=== PATIENT | male | born 1935 | race Caucasian/White ===

== ENCOUNTER 2018-11-14 06:31 | Inpatient (IN) | payer OTHER, BC ==
[2018-11-14] MEDS: SODIUM CHLORIDE 0.9% 1L BAG IV* (07:09)
[2018-11-14 07:11] LABS: ADD MAN DIFF? NO
[2018-11-14 07:12] LABS: BASOPHIL # 0.1 10^3/ul (0.0-0.1); BASOPHILS % 0.5 % (0.0-2.0); EOSINOPHILS # 0.1 10^3/ul (0.0-0.5); EOSINOPHILS % 0.7 % (0.0-7.0); HEMATOCRIT 30.1 % (42.0-52.0); HEMOGLOBIN 8.9 g/dl (14.0-18.0); LYMPHOCYTES # 1.7 10^3/ul (0.8-2.9); LYMPHOCYTES % 15.3 % (15.0-51.0); MEAN CORPUSCULAR HEMOGLOBIN 26.9 pg (29.0-33.0); MEAN CORPUSCULAR HGB CONC 29.6 g/dl (32.0-37.0); MEAN CORPUSCULAR VOLUME 90.9 fl (82.0-101.0); MEAN PLATELET VOLUME 10.8 fl (7.4-10.4); MONOCYTES % 8.7 % (0.0-11.0); NEUTROPHIL # 8.2 10^3/ul (1.6-7.5); NEUTROPHILS % 74.1 % (39.0-77.0); PLATELET COUNT 359 10^3/UL (140-415); RED BLOOD COUNT 3.31 10^6/ul (4.70-6.10); RED CELL DISTRIBUTION WIDTH 15.3 % (11.5-14.5)
[2018-11-14] MEDS: CEFEPIME 2GM/50 ML (PMX) 50 ML IVPB (07:12)
[2018-11-14 07:30] LABS: ALANINE AMINOTRANSFERASE 65 IU/L (13-69); ALBUMIN 2.7 g/dl (3.3-4.9); ALBUMIN/GLOBULIN RATIO 0.69; ALKALINE PHOSPHATASE 128 IU/L (42-121); ANION GAP 12 (5-13); ASPARTATE AMINO TRANSFERASE 68 IU/L (15-46); BILIRUBIN,INDIRECT 0.5 mg/dl (0-1.1); BILIRUBIN,TOTAL 0.5 mg/dl (0.2-1.3); BLOOD UREA NITROGEN 30 mg/dl (7-20); CALCIUM 8.2 mg/dl (8.4-10.2); CARBON DIOXIDE 27 mmol/L (21-31); CHLORIDE 105 mmol/L (97-110); CREATININE 1.22 mg/dl (0.61-1.24); GLUCOSE 134 mg/dl (70-220); SODIUM 144 mmol/L (135-144); TOTAL PROTEIN 6.6 g/dl (6.1-8.1)
[2018-11-14 07:31] LABS: INR 1.27; PT RATIO 1.3
[2018-11-14 07:32] LABS: PARTIAL THROMBOPLASTIN TIME 36.6 Sec (23.0-35.0)
[2018-11-14 07:42] LABS: TROPONIN-I 0.039 ng/ml (0.000-0.120)
[2018-11-14] MEDS: ACETAMINOPHEN 325 MG SUPP PR (07:43)
[2018-11-14] MEDS: VANCOMYCIN 1 GM (PMX) 250 ML IVPB (07:44)
[2018-11-14] MEDS: KETOROLAC 15 MG INJ IV (07:44)
[2018-11-14 07:47] LABS: Allen Test ACCEPTAB; Arterial Base Excess 2.3 mmol/L (-3.0-3); Arterial Blood Gas Oxygen Sat 99.7 mmHG (95.0-100.0); Arterial COHb 1.1 % (0.0-3.0); Arterial Fraction of Oxyhgb 98.1 % (93.0-99.0); Arterial HCO3 25.2 mmol/L (22.0-26.0); Arterial MetHb 0.5 % (0.0-1.5); Arterial pCO2 32.4 mmhg (35-45); MODE VENT - AC; Site Right Radial
[2018-11-14 09:04] LABS: LACTIC ACID 2.4 mmol/L (0.5-2.0)
[2018-11-14] MEDS ORDERED: ACETAMINOPHEN 325 MG TAB PO (10:30)
[2018-11-14] MEDS ORDERED: ONDANSETRON 4 MG INJ IV (10:30)
[2018-11-14 11:07] LABS: ADD UMIC YES; UR ASCORBIC ACID 40 mg/dL (NEGATIVE); UR BACTERIA FEW /HPF (NONE SEEN); UR BILIRUBIN (Dip) NEGATIVE (NEGATIVE); UR BLOOD (Dip) 2+ mg/dL (NEGATIVE); UR CLARITY CLOUDY (CLEAR); UR COLOR AMBER (YELLOW); UR GLUCOSE (Dip) NEGATIVE (NEGATIVE); UR HYALINE CAST FEW /HPF (NONE SEEN); UR KETONES (Dip) TRACE mg/dL (NEGATIVE); UR LEUKOCYTE ESTERASE (Dip) 2+ Leu/ul (NEGATIVE); UR MUCUS FEW /HPF (NONE SEEN); UR NITRITE (Dip) NEGATIVE (NEGATIVE); UR RBC 90 /HPF (0-5); UR SPECIFIC GRAVITY (Dip) 1.023 (1.003-1.030); UR SQUAMOUS EPITHELIAL CELL FEW /HPF (FEW); UR TOTAL PROTEIN (Dip) 1+ mg/dl (NEGATIVE); UR UROBILINOGEN (Dip) 1+ mg/dL (NEGATIVE); UR WBC 132 /HPF (0-5)
[2018-11-14] MEDS ORDERED: VANCOMYCIN IV PER PHARMACY XX (11:30)
[2018-11-14] MEDS: SOD CHLORIDE 0.9% 1,000 ML IV (11:35)
[2018-11-14 12:10] LABS: LACTIC ACID 1.1 mmol/L (0.5-2.0)
[2018-11-14] MEDS ORDERED: NACL 0.9% 3 ML SYG IV (13:30)
[2018-11-14] MEDS: SOD CHLORIDE 0.45% 1,000 ML IV (15:41)
[2018-11-14] MEDS: PIPER-TAZO 3.375 GM IV (PMX) 100 ML IVPB ×2 (15:41→21:19)
[2018-11-14] MEDS: VANCOMYCIN 1 GM 250 ML IVPB (22:07)
[2018-11-15] MEDS: SOD CHLORIDE 0.45% 1,000 ML IV ×2 (02:26→11:21)
[2018-11-15] MEDS: PIPER-TAZO 3.375 GM IV (PMX) 100 ML IVPB ×3 (06:08→21:17)
[2018-11-15] MEDS: LEVOTHYROXINE 50 MCG TAB GTB (06:10)
[2018-11-15 06:18] LABS: ADD MAN DIFF? NO
[2018-11-15 06:29] LABS: BASOPHILS % 0.4 % (0.0-2.0); EOSINOPHILS # 0.4 10^3/ul (0.0-0.5); EOSINOPHILS % 3.4 % (0.0-7.0); HEMATOCRIT 24.8 % (42.0-52.0); HEMOGLOBIN 7.5 g/dl (14.0-18.0); LYMPHOCYTES # 1.9 10^3/ul (0.8-2.9); MEAN CORPUSCULAR HEMOGLOBIN 27.1 pg (29.0-33.0); MEAN CORPUSCULAR HGB CONC 30.2 g/dl (32.0-37.0); MEAN CORPUSCULAR VOLUME 89.5 fl (82.0-101.0); MEAN PLATELET VOLUME 10.5 fl (7.4-10.4); MONOCYTE # 0.8 10^3/ul (0.3-0.9); MONOCYTES % 7.7 % (0.0-11.0); NEUTROPHIL # 7.4 10^3/ul (1.6-7.5); NEUTROPHILS % 69.7 % (39.0-77.0); PLATELET COUNT 298 10^3/UL (140-415); RED BLOOD COUNT 2.77 10^6/ul (4.70-6.10); RED CELL DISTRIBUTION WIDTH 15.7 % (11.5-14.5)
[2018-11-15 06:29] LABS: WHITE BLOOD COUNT 10.6 10^3/ul (4.8-10.8)
[2018-11-15 06:46] LABS: ALANINE AMINOTRANSFERASE 51 IU/L (13-69); ALBUMIN 2.2 g/dl (3.3-4.9); ALBUMIN/GLOBULIN RATIO 0.68; ALKALINE PHOSPHATASE 100 IU/L (42-121); ANION GAP 12 (5-13); ASPARTATE AMINO TRANSFERASE 46 IU/L (15-46); BILIRUBIN,INDIRECT 0.5 mg/dl (0-1.1); BILIRUBIN,TOTAL 0.5 mg/dl (0.2-1.3); BLOOD UREA NITROGEN 28 mg/dl (7-20); CALCIUM 7.6 mg/dl (8.4-10.2); CARBON DIOXIDE 23 mmol/L (21-31); CHLORIDE 112 mmol/L (97-110); CREATININE 0.99 mg/dl (0.61-1.24); GLUCOSE 87 mg/dl (70-220); POTASSIUM 3.4 mmol/L (3.5-5.1); SODIUM 147 mmol/L (135-144); TOTAL PROTEIN 5.4 g/dl (6.1-8.1)
[2018-11-15 07:20] LABS: HEMOGLOBIN A1C 5.5 % (0-5.9)
[2018-11-15] MEDS: POTASSIUM CHLORIDE 20 MEQ POWDER FOR ORAL SOLN GTB (16:48)
[2018-11-15] MEDS: traMADol 50 MG TAB PEG (21:16)
[2018-11-15] MEDS: VANCOMYCIN 1 GM 250 ML IVPB (22:15)
[2018-11-16] MEDS: PIPER-TAZO 3.375 GM IV (PMX) 100 ML IVPB ×3 (06:10→21:35)
[2018-11-16] MEDS: SOD CHLORIDE 0.45% 1,000 ML IV ×2 (06:10→20:16)
[2018-11-16] MEDS: LEVOTHYROXINE 50 MCG TAB GTB (06:10)
[2018-11-16] MEDS: traMADol 50 MG TAB PEG ×2 (08:12→20:12)
[2018-11-16] MEDS: METOPROLOL 5 MG INJ IV ×3 (09:14→15:50)
[2018-11-16] MEDS: METOPROLOL 25 MG TAB GTB (09:18)
[2018-11-16] MEDS ORDERED: AMIODARONE 900 MG in DEXTROSE 5% 482 ML IV (10:30)
[2018-11-16] MEDS: AMIODARONE 150MG/D5W BOLUS 100 ML IV (11:46)
[2018-11-16] MEDS: DILTIAZEM 25 MG INJ IV ×2 (16:40→17:35)
[2018-11-16] MEDS: DILTIAZEM-D5W 125MG/125ML DRIP 125 ML IV (17:34)
[2018-11-16] MEDS: POTASSIUM CHLORIDE 20 MEQ POWDER FOR ORAL SOLN GTB (18:10)
[2018-11-16] MEDS: ENOXAPARIN 80 MG/0.8 ML SYG SC (18:24)
[2018-11-16] MEDS: SOD CHLORIDE 0.9% 500 ML IV ×2 (19:53→20:15)
[2018-11-16] MEDS: FAMOTIDINE 20 MG TAB GTB (20:12)
[2018-11-16] MEDS: VANCOMYCIN 1 GM 250 ML IVPB (22:09)
[2018-11-17] MEDS: VANCOMYCIN HCL 250 MG/5ML POSYG GTB ×4 (00:09→17:42)
[2018-11-17 05:18] LABS: ADD MAN DIFF? NO
[2018-11-17 05:21] LABS: LACTIC ACID 1.3 mmol/L (0.5-2.0); WHITE BLOOD COUNT 9.6 10^3/ul (4.8-10.8)
[2018-11-17 05:21] LABS: BASOPHIL # 0.1 10^3/ul (0.0-0.1); BASOPHILS % 0.7 % (0.0-2.0); EOSINOPHILS # 0.3 10^3/ul (0.0-0.5); EOSINOPHILS % 3.1 % (0.0-7.0); HEMATOCRIT 26.9 % (42.0-52.0); LYMPHOCYTES # 2.5 10^3/ul (0.8-2.9); LYMPHOCYTES % 25.6 % (15.0-51.0); MEAN CORPUSCULAR HEMOGLOBIN 26.2 pg (29.0-33.0); MEAN CORPUSCULAR HGB CONC 29.7 g/dl (32.0-37.0); MEAN CORPUSCULAR VOLUME 88.2 fl (82.0-101.0); MEAN PLATELET VOLUME 10.3 fl (7.4-10.4); MONOCYTE # 0.8 10^3/ul (0.3-0.9); MONOCYTES % 7.9 % (0.0-11.0); NEUTROPHIL # 5.9 10^3/ul (1.6-7.5); NEUTROPHILS % 61.7 % (39.0-77.0); PLATELET COUNT 391 10^3/UL (140-415); RED BLOOD COUNT 3.05 10^6/ul (4.70-6.10)
[2018-11-17 05:35] LABS: ALANINE AMINOTRANSFERASE 48 IU/L (13-69); ALBUMIN 2.1 g/dl (3.3-4.9); ALBUMIN/GLOBULIN RATIO 0.65; ALKALINE PHOSPHATASE 104 IU/L (42-121); ANION GAP 12 (5-13); ASPARTATE AMINO TRANSFERASE 42 IU/L (15-46); BILIRUBIN,INDIRECT 0.5 mg/dl (0-1.1); BILIRUBIN,TOTAL 0.5 mg/dl (0.2-1.3); BLOOD UREA NITROGEN 17 mg/dl (7-20); CALCIUM 7.6 mg/dl (8.4-10.2); CARBON DIOXIDE 18 mmol/L (21-31); CHLORIDE 119 mmol/L (97-110); CREATININE 1.07 mg/dl (0.61-1.24); GLUCOSE 73 mg/dl (70-220); MAGNESIUM 2.1 mg/dl (1.7-2.5); POTASSIUM 3.5 mmol/L (3.5-5.1); SODIUM 149 mmol/L (135-144); TOTAL PROTEIN 5.3 g/dl (6.1-8.1)
[2018-11-17 05:44] LABS: TROPONIN-I 0.033 ng/ml (0.000-0.120)
[2018-11-17 05:51] LABS: INR 1.46; PROTIME 17.8 Sec (11.9-14.9); PT RATIO 1.4
[2018-11-17] MEDS: PIPER-TAZO 3.375 GM IV (PMX) 100 ML IVPB ×2 (06:20→14:20)
[2018-11-17] MEDS: LEVOTHYROXINE 50 MCG TAB GTB (06:20)
[2018-11-17] MEDS: HEPARIN 1000 UNITS/ML 10 ML INJ IV ×3 (07:30→22:12)
[2018-11-17] MEDS ORDERED: HEPARIN 1000 UNITS/ML 10 ML INJ IV (07:30)
[2018-11-17] MEDS: SOD CHLORIDE 0.45% 1,000 ML IV (07:46)
[2018-11-17 08:19] LABS: ADD MAN DIFF? NO
[2018-11-17 08:27] LABS: WHITE BLOOD COUNT 9.7 10^3/ul (4.8-10.8)
[2018-11-17 08:27] LABS: BASOPHIL # 0.1 10^3/ul (0.0-0.1); BASOPHILS % 0.8 % (0.0-2.0); EOSINOPHILS # 0.3 10^3/ul (0.0-0.5); EOSINOPHILS % 3.3 % (0.0-7.0); HEMATOCRIT 26.8 % (42.0-52.0); HEMOGLOBIN 8.2 g/dl (14.0-18.0); LYMPHOCYTES # 2.8 10^3/ul (0.8-2.9); LYMPHOCYTES % 28.7 % (15.0-51.0); MEAN CORPUSCULAR HEMOGLOBIN 26.6 pg (29.0-33.0); MEAN CORPUSCULAR HGB CONC 30.6 g/dl (32.0-37.0); MEAN PLATELET VOLUME 10.2 fl (7.4-10.4); MONOCYTE # 0.9 10^3/ul (0.3-0.9); MONOCYTES % 9.4 % (0.0-11.0); NEUTROPHIL # 5.5 10^3/ul (1.6-7.5); NEUTROPHILS % 56.6 % (39.0-77.0); PLATELET COUNT 362 10^3/UL (140-415); RED BLOOD COUNT 3.08 10^6/ul (4.70-6.10); RED CELL DISTRIBUTION WIDTH 16.1 % (11.5-14.5)
[2018-11-17 08:42] LABS: PROTIME 17.3 Sec (11.9-14.9); PT RATIO 1.4
[2018-11-17 08:43] LABS: PARTIAL THROMBOPLASTIN TIME 49.7 Sec (23.0-35.0)
[2018-11-17] MEDS: HEPARIN 25000 UNITS/250 ML 250 ML IV ×2 (09:25→17:52)
[2018-11-17] MEDS: POTASSIUM CHLORIDE 20 MEQ POWDER FOR ORAL SOLN GTB (09:55)
[2018-11-17] MEDS: traMADol 50 MG TAB PEG ×2 (09:56→20:25)
[2018-11-17] MEDS: BALSAM PERU/CASTOR OIL 60 GM TUBE TOP (12:55)
[2018-11-17] MEDS: HYDROmorphONE 0.5 MG/0.5 ML SYG IV (12:55)
[2018-11-17] MEDS ORDERED: GENTAMICIN IV PER PHARMACY XX (16:00)
[2018-11-17 16:41] LABS: PARTIAL THROMBOPLASTIN TIME 148.2 Sec (23.0-35.0)
[2018-11-17] MEDS: GENTAMICIN 100 MG/50 ML NS IVPB (17:44)
[2018-11-17] MEDS: DILTIAZEM-D5W 125MG/125ML DRIP 125 ML IV (18:23)
[2018-11-17] MEDS: metroNIDAZOLE 500 MG/NS (PMX) 100 ML IVPB (19:13)
[2018-11-17] MEDS: METOPROLOL 5 MG INJ IV (19:38)
[2018-11-17] MEDS: POTASSIUM CHLORIDE 100 ML IVPB ×2 (20:24→22:12)
[2018-11-17] MEDS: FAMOTIDINE 20 MG TAB GTB (20:25)
[2018-11-17 21:32] LABS: PARTIAL THROMBOPLASTIN TIME 45.5 Sec (23.0-35.0)
[2018-11-17] MEDS: AMIODARONE 150MG/D5W BOLUS 100 ML IV (21:32)
[2018-11-17] MEDS: AMIODARONE 900 MG in DEXTROSE 5% 482 ML IV (21:32)
[2018-11-17 21:57] LABS: VANCOMYCIN,TROUGH 14.2 ug/ml (10.0-20.0)
[2018-11-18] MEDS: VANCOMYCIN HCL 250 MG/5ML POSYG GTB ×4 (00:16→17:19)
[2018-11-18] MEDS: metroNIDAZOLE 500 MG/NS (PMX) 100 ML IVPB ×2 (00:17→05:52)
[2018-11-18 05:25] LABS: ADD MAN DIFF? NO
[2018-11-18 05:29] LABS: WHITE BLOOD COUNT 9.4 10^3/ul (4.8-10.8)
[2018-11-18 05:29] LABS: BASOPHIL # 0.1 10^3/ul (0.0-0.1); BASOPHILS % 0.5 % (0.0-2.0); EOSINOPHILS # 0.3 10^3/ul (0.0-0.5); EOSINOPHILS % 2.9 % (0.0-7.0); HEMATOCRIT 24.3 % (42.0-52.0); HEMOGLOBIN 7.4 g/dl (14.0-18.0); LYMPHOCYTES # 2.9 10^3/ul (0.8-2.9); LYMPHOCYTES % 30.5 % (15.0-51.0); MEAN CORPUSCULAR HEMOGLOBIN 25.9 pg (29.0-33.0); MEAN CORPUSCULAR HGB CONC 30.5 g/dl (32.0-37.0); MEAN PLATELET VOLUME 10.2 fl (7.4-10.4); MONOCYTES % 10.7 % (0.0-11.0); NEUTROPHILS % 52.9 % (39.0-77.0); PLATELET COUNT 371 10^3/UL (140-415); RED BLOOD COUNT 2.86 10^6/ul (4.70-6.10); RED CELL DISTRIBUTION WIDTH 16.3 % (11.5-14.5)
[2018-11-18 05:53] LABS: INR 1.42; PROTIME 17.5 Sec (11.9-14.9); PT RATIO 1.4
[2018-11-18 05:54] LABS: ANION GAP 9 (5-13); BLOOD UREA NITROGEN 16 mg/dl (7-20); CALCIUM 7.4 mg/dl (8.4-10.2); CARBON DIOXIDE 18 mmol/L (21-31); CHLORIDE 121 mmol/L (97-110); CREATININE 1.08 mg/dl (0.61-1.24); GLUCOSE 112 mg/dl (70-220); POTASSIUM 4.2 mmol/L (3.5-5.1); SODIUM 148 mmol/L (135-144)
[2018-11-18] MEDS: LEVOTHYROXINE 50 MCG TAB GTB (06:00)
[2018-11-18] MEDS: HEPARIN 25000 UNITS/250 ML 250 ML IV (06:53)
[2018-11-18 06:57] LABS: PARTIAL THROMBOPLASTIN TIME > 180.0 Sec (23.0-35.0)
[2018-11-18] MEDS: POTASSIUM CHLORIDE 20 MEQ POWDER FOR ORAL SOLN GTB (08:09)
[2018-11-18] MEDS: traMADol 50 MG TAB PEG ×2 (08:09→22:24)
[2018-11-18] MEDS: BALSAM PERU/CASTOR OIL 60 GM TUBE TOP (08:09)
[2018-11-18 08:51] LABS: INR 1.36; PROTIME 16.9 Sec (11.9-14.9); PT RATIO 1.3
[2018-11-18 09:06] LABS: PARTIAL THROMBOPLASTIN TIME 78.4 Sec (23.0-35.0)
[2018-11-18] MEDS: METOPROLOL (XL) 25 MG TAB PO (10:08)
[2018-11-18 10:55] LABS: INR 1.34; PROTIME 16.7 Sec (11.9-14.9); PT RATIO 1.3
[2018-11-18 10:56] LABS: PARTIAL THROMBOPLASTIN TIME 47.3 Sec (23.0-35.0)
[2018-11-18] MEDS: GENTAMICIN 100 MG/50 ML NS IVPB (18:26)
[2018-11-18] MEDS: FAMOTIDINE 20 MG TAB GTB (22:24)
[2018-11-19] MEDS: VANCOMYCIN HCL 250 MG/5ML POSYG GTB ×4 (00:38→17:53)
[2018-11-19 06:19] LABS: ADD MAN DIFF? NO
[2018-11-19 06:24] LABS: BASOPHIL # 0.1 10^3/ul (0.0-0.1); BASOPHILS % 0.5 % (0.0-2.0); EOSINOPHILS # 0.4 10^3/ul (0.0-0.5); EOSINOPHILS % 3.8 % (0.0-7.0); HEMATOCRIT 24.3 % (42.0-52.0); HEMOGLOBIN 7.4 g/dl (14.0-18.0); LYMPHOCYTES # 2.3 10^3/ul (0.8-2.9); LYMPHOCYTES % 23.9 % (15.0-51.0); MEAN CORPUSCULAR HEMOGLOBIN 27.1 pg (29.0-33.0); MEAN CORPUSCULAR HGB CONC 30.5 g/dl (32.0-37.0); MEAN PLATELET VOLUME 10.1 fl (7.4-10.4); MONOCYTE # 0.7 10^3/ul (0.3-0.9); MONOCYTES % 7.5 % (0.0-11.0); NEUTROPHILS % 62.2 % (39.0-77.0); PLATELET COUNT 346 10^3/UL (140-415); RED BLOOD COUNT 2.73 10^6/ul (4.70-6.10); RED CELL DISTRIBUTION WIDTH 16.9 % (11.5-14.5)
[2018-11-19 06:24] LABS: WHITE BLOOD COUNT 9.6 10^3/ul (4.8-10.8)
[2018-11-19] MEDS: LEVOTHYROXINE 50 MCG TAB GTB (06:33)
[2018-11-19 07:41] LABS: ANION GAP 6 (5-13)
[2018-11-19 07:55] LABS: BLOOD UREA NITROGEN 13 mg/dl (7-20); CARBON DIOXIDE 19 mmol/L (21-31); CHLORIDE 123 mmol/L (97-110); CREATININE 1.07 mg/dl (0.61-1.24); GLUCOSE 87 mg/dl (70-220); POTASSIUM 3.9 mmol/L (3.5-5.1); SODIUM 148 mmol/L (135-144)
[2018-11-19 07:56] LABS: CALCIUM 7.6 mg/dl (8.4-10.2)
[2018-11-19] MEDS: BALSAM PERU/CASTOR OIL 60 GM TUBE TOP (08:32)
[2018-11-19] MEDS: METOPROLOL (XL) 25 MG TAB PO (08:32)
[2018-11-19] MEDS: POTASSIUM CHLORIDE 20 MEQ POWDER FOR ORAL SOLN GTB (08:32)
[2018-11-19] MEDS: traMADol 50 MG TAB PEG ×2 (08:33→22:23)
[2018-11-19] MEDS: AMIODARONE 200 MG TAB PO ×2 (11:25→22:24)
[2018-11-19] MEDS: GENTAMICIN 100 MG/50 ML NS IVPB (17:53)
[2018-11-19 18:42] LABS: GENTAMICIN,TROUGH 1.6 ug/ml (1.0-2.0)
[2018-11-19] MEDS: FAMOTIDINE 20 MG TAB GTB (22:22)
[2018-11-20] MEDS: VANCOMYCIN HCL 250 MG/5ML POSYG GTB ×4 (02:43→18:02)
[2018-11-20] MEDS: LEVOTHYROXINE 50 MCG TAB GTB (06:25)
[2018-11-20 08:21] LABS: ADD MAN DIFF? NO
[2018-11-20 08:32] LABS: BASOPHIL # 0.1 10^3/ul (0.0-0.1); BASOPHILS % 0.4 % (0.0-2.0); EOSINOPHILS # 0.3 10^3/ul (0.0-0.5); EOSINOPHILS % 1.5 % (0.0-7.0); HEMATOCRIT 25.2 % (42.0-52.0); HEMOGLOBIN 7.8 g/dl (14.0-18.0); LYMPHOCYTES # 3.1 10^3/ul (0.8-2.9); LYMPHOCYTES % 18.8 % (15.0-51.0); MEAN CORPUSCULAR HEMOGLOBIN 26.5 pg (29.0-33.0); MEAN CORPUSCULAR VOLUME 85.7 fl (82.0-101.0); MEAN PLATELET VOLUME 9.7 fl (7.4-10.4); MONOCYTE # 1.2 10^3/ul (0.3-0.9); MONOCYTES % 7.1 % (0.0-11.0); NEUTROPHIL # 11.7 10^3/ul (1.6-7.5); NEUTROPHILS % 71.3 % (39.0-77.0); PLATELET COUNT 334 10^3/UL (140-415); RED BLOOD COUNT 2.94 10^6/ul (4.70-6.10); RED CELL DISTRIBUTION WIDTH 17.3 % (11.5-14.5)
[2018-11-20 08:32] LABS: WHITE BLOOD COUNT 16.4 10^3/ul (4.8-10.8)
[2018-11-20 08:51] LABS: ANION GAP 8 (5-13); BLOOD UREA NITROGEN 10 mg/dl (7-20); CALCIUM 7.9 mg/dl (8.4-10.2); CARBON DIOXIDE 19 mmol/L (21-31); CHLORIDE 122 mmol/L (97-110); CREATININE 1.04 mg/dl (0.61-1.24); GLUCOSE 72 mg/dl (70-220); POTASSIUM 3.7 mmol/L (3.5-5.1); SODIUM 149 mmol/L (135-144)
[2018-11-20] MEDS: POTASSIUM CHLORIDE 20 MEQ POWDER FOR ORAL SOLN GTB (08:58)
[2018-11-20] MEDS: traMADol 50 MG TAB PEG ×2 (08:59→22:05)
[2018-11-20] MEDS: AMIODARONE 200 MG TAB PO ×2 (08:59→22:04)
[2018-11-20] MEDS: METOPROLOL (XL) 25 MG TAB PO (08:59)
[2018-11-20] MEDS: BALSAM PERU/CASTOR OIL 60 GM TUBE TOP (09:00)
[2018-11-20] MEDS: DEXTROSE 5% 1,000 ML IV (10:06)
[2018-11-20] MEDS: GENTAMICIN 100 MG/50 ML NS IVPB (18:03)
[2018-11-20] MEDS: FAMOTIDINE 20 MG TAB GTB (22:05)
[2018-11-21] MEDS: VANCOMYCIN HCL 250 MG/5ML POSYG GTB ×4 (01:22→17:33)
[2018-11-21] MEDS: LEVOTHYROXINE 50 MCG TAB GTB ×2 (06:00→08:42)
[2018-11-21 06:15] LABS: ADD MAN DIFF? NO
[2018-11-21 06:18] LABS: WHITE BLOOD COUNT 11.9 10^3/ul (4.8-10.8)
[2018-11-21 06:18] LABS: BASOPHILS % 0.3 % (0.0-2.0); EOSINOPHILS # 0.4 10^3/ul (0.0-0.5); EOSINOPHILS % 3.5 % (0.0-7.0); LYMPHOCYTES # 3.2 10^3/ul (0.8-2.9); LYMPHOCYTES % 27.1 % (15.0-51.0); MEAN CORPUSCULAR HEMOGLOBIN 26.5 pg (29.0-33.0); MEAN CORPUSCULAR HGB CONC 30.8 g/dl (32.0-37.0); MEAN CORPUSCULAR VOLUME 86.1 fl (82.0-101.0); MONOCYTES % 8.3 % (0.0-11.0); NEUTROPHIL # 7.1 10^3/ul (1.6-7.5); NEUTROPHILS % 59.8 % (39.0-77.0); PLATELET COUNT 316 10^3/UL (140-415); RED BLOOD COUNT 3.02 10^6/ul (4.70-6.10); RED CELL DISTRIBUTION WIDTH 17.6 % (11.5-14.5)
[2018-11-21 06:54] LABS: ANION GAP 5 (5-13); BLOOD UREA NITROGEN 9 mg/dl (7-20); CARBON DIOXIDE 22 mmol/L (21-31); CHLORIDE 119 mmol/L (97-110); CREATININE 0.98 mg/dl (0.61-1.24); GLUCOSE 105 mg/dl (70-220); SODIUM 146 mmol/L (135-144)
[2018-11-21] MEDS: POTASSIUM CHLORIDE 20 MEQ POWDER FOR ORAL SOLN GTB (08:40)
[2018-11-21] MEDS: AMIODARONE 200 MG TAB PO ×2 (08:41→20:18)
[2018-11-21] MEDS: METOPROLOL (XL) 25 MG TAB PO (08:42)
[2018-11-21] MEDS: traMADol 50 MG TAB PEG ×2 (08:42→20:15)
[2018-11-21] MEDS: BALSAM PERU/CASTOR OIL 60 GM TUBE TOP (08:43)
[2018-11-21] MEDS: GENTAMICIN 100 MG/50 ML NS IVPB (17:33)
[2018-11-21] MEDS: FAMOTIDINE 20 MG TAB GTB (20:15)
[2018-11-22] MEDS: VANCOMYCIN HCL 250 MG/5ML POSYG GTB ×4 (00:02→17:30)
[2018-11-22 06:22] LABS: ADD MAN DIFF? NO
[2018-11-22 06:37] LABS: WHITE BLOOD COUNT 10.8 10^3/ul (4.8-10.8)
[2018-11-22 06:37] LABS: BASOPHILS % 0.4 % (0.0-2.0); EOSINOPHILS # 0.4 10^3/ul (0.0-0.5); EOSINOPHILS % 3.3 % (0.0-7.0); HEMATOCRIT 25.4 % (42.0-52.0); HEMOGLOBIN 7.8 g/dl (14.0-18.0); LYMPHOCYTES % 27.6 % (15.0-51.0); MEAN CORPUSCULAR HEMOGLOBIN 26.6 pg (29.0-33.0); MEAN CORPUSCULAR HGB CONC 30.7 g/dl (32.0-37.0); MEAN CORPUSCULAR VOLUME 86.7 fl (82.0-101.0); MEAN PLATELET VOLUME 10.2 fl (7.4-10.4); MONOCYTE # 0.9 10^3/ul (0.3-0.9); MONOCYTES % 8.4 % (0.0-11.0); NEUTROPHIL # 6.3 10^3/ul (1.6-7.5); NEUTROPHILS % 58.8 % (39.0-77.0); PLATELET COUNT 284 10^3/UL (140-415); RED BLOOD COUNT 2.93 10^6/ul (4.70-6.10); RED CELL DISTRIBUTION WIDTH 17.9 % (11.5-14.5)
[2018-11-22 06:50] LABS: ANION GAP 7 (5-13); BLOOD UREA NITROGEN 9 mg/dl (7-20); CALCIUM 8.2 mg/dl (8.4-10.2); CARBON DIOXIDE 22 mmol/L (21-31); CHLORIDE 117 mmol/L (97-110); CREATININE 1.04 mg/dl (0.61-1.24); GLUCOSE 94 mg/dl (70-220); SODIUM 146 mmol/L (135-144)
[2018-11-22] MEDS: AMIODARONE 200 MG TAB PO ×2 (08:21→20:21)
[2018-11-22] MEDS: POTASSIUM CHLORIDE 20 MEQ POWDER FOR ORAL SOLN GTB (08:21)
[2018-11-22] MEDS: LEVOTHYROXINE 50 MCG TAB GTB (08:21)
[2018-11-22] MEDS: traMADol 50 MG TAB PEG ×2 (08:22→20:16)
[2018-11-22] MEDS: METOPROLOL (XL) 25 MG TAB PO (08:22)
[2018-11-22] MEDS: BALSAM PERU/CASTOR OIL 60 GM TUBE TOP (08:23)
[2018-11-22] MEDS: GENTAMICIN 100 MG/50 ML NS IVPB (17:31)
[2018-11-22] MEDS: FAMOTIDINE 20 MG TAB GTB (20:16)
[2018-11-23] MEDS: VANCOMYCIN HCL 250 MG/5ML POSYG GTB ×4 (00:20→17:33)
[2018-11-23 05:17] LABS: ADD MAN DIFF? NO
[2018-11-23 05:24] LABS: BASOPHIL # 0.1 10^3/ul (0.0-0.1); BASOPHILS % 0.4 % (0.0-2.0); EOSINOPHILS # 0.2 10^3/ul (0.0-0.5); EOSINOPHILS % 1.7 % (0.0-7.0); HEMATOCRIT 27.1 % (42.0-52.0); HEMOGLOBIN 8.4 g/dl (14.0-18.0); LYMPHOCYTES # 3.8 10^3/ul (0.8-2.9); LYMPHOCYTES % 27.2 % (15.0-51.0); MEAN CORPUSCULAR HEMOGLOBIN 26.5 pg (29.0-33.0); MEAN CORPUSCULAR VOLUME 85.5 fl (82.0-101.0); MONOCYTE # 1.3 10^3/ul (0.3-0.9); MONOCYTES % 9.5 % (0.0-11.0); NEUTROPHIL # 8.4 10^3/ul (1.6-7.5); NEUTROPHILS % 60.4 % (39.0-77.0); PLATELET COUNT 272 10^3/UL (140-415); RED BLOOD COUNT 3.17 10^6/ul (4.70-6.10); RED CELL DISTRIBUTION WIDTH 18.3 % (11.5-14.5)
[2018-11-23 05:24] LABS: WHITE BLOOD COUNT 13.9 10^3/ul (4.8-10.8)
[2018-11-23 06:24] LABS: ANION GAP 9 (5-13); BLOOD UREA NITROGEN 10 mg/dl (7-20); CALCIUM 8.1 mg/dl (8.4-10.2); CARBON DIOXIDE 21 mmol/L (21-31); CHLORIDE 115 mmol/L (97-110); CREATININE 1.11 mg/dl (0.61-1.24); GLUCOSE 88 mg/dl (70-220); POTASSIUM 4.2 mmol/L (3.5-5.1); SODIUM 145 mmol/L (135-144)
[2018-11-23] MEDS: POTASSIUM CHLORIDE 20 MEQ POWDER FOR ORAL SOLN GTB (08:16)
[2018-11-23] MEDS: AMIODARONE 200 MG TAB PO ×2 (08:17→21:20)
[2018-11-23] MEDS: METOPROLOL (XL) 25 MG TAB PO (08:17)
[2018-11-23] MEDS: BALSAM PERU/CASTOR OIL 60 GM TUBE TOP (08:18)
[2018-11-23] MEDS: traMADol 50 MG TAB PEG ×2 (08:18→21:20)
[2018-11-23] MEDS: GENTAMICIN 100 MG/50 ML NS IVPB (18:14)
[2018-11-23] MEDS: FAMOTIDINE 20 MG TAB GTB (21:20)
[2018-11-23] MEDS: ASCORBIC ACID 500 MG TAB GTB (21:21)
[2018-11-24] MEDS: VANCOMYCIN HCL 250 MG/5ML POSYG GTB ×5 (01:01→23:54)
[2018-11-24 05:23] LABS: ADD MAN DIFF? NO
[2018-11-24 05:27] LABS: BASOPHIL # 0.1 10^3/ul (0.0-0.1); BASOPHILS % 0.5 % (0.0-2.0); EOSINOPHILS # 0.3 10^3/ul (0.0-0.5); EOSINOPHILS % 2.1 % (0.0-7.0); HEMATOCRIT 25.6 % (42.0-52.0); LYMPHOCYTES # 4.2 10^3/ul (0.8-2.9); LYMPHOCYTES % 34.2 % (15.0-51.0); MEAN CORPUSCULAR HEMOGLOBIN 26.9 pg (29.0-33.0); MEAN CORPUSCULAR HGB CONC 31.3 g/dl (32.0-37.0); MEAN CORPUSCULAR VOLUME 86.2 fl (82.0-101.0); MEAN PLATELET VOLUME 10.3 fl (7.4-10.4); MONOCYTE # 1.2 10^3/ul (0.3-0.9); MONOCYTES % 9.9 % (0.0-11.0); NEUTROPHIL # 6.4 10^3/ul (1.6-7.5); NEUTROPHILS % 52.7 % (39.0-77.0); PLATELET COUNT 235 10^3/UL (140-415); RED BLOOD COUNT 2.97 10^6/ul (4.70-6.10); RED CELL DISTRIBUTION WIDTH 18.4 % (11.5-14.5)
[2018-11-24 05:27] LABS: WHITE BLOOD COUNT 12.2 10^3/ul (4.8-10.8)
[2018-11-24 05:48] LABS: ANION GAP 8 (5-13); BLOOD UREA NITROGEN 11 mg/dl (7-20); CALCIUM 8.1 mg/dl (8.4-10.2); CARBON DIOXIDE 22 mmol/L (21-31); CHLORIDE 115 mmol/L (97-110); CREATININE 1.18 mg/dl (0.61-1.24); GLUCOSE 102 mg/dl (70-220); POTASSIUM 3.9 mmol/L (3.5-5.1); SODIUM 145 mmol/L (135-144)
[2018-11-24] MEDS: LEVOTHYROXINE 50 MCG TAB GTB (06:30)
[2018-11-24] MEDS: POTASSIUM CHLORIDE 20 MEQ POWDER FOR ORAL SOLN GTB (09:39)
[2018-11-24] MEDS: ZINC SULFATE 220 MG CAP GTB (09:39)
[2018-11-24] MEDS: MULTIVITAMINS 30 ML CUP GTB (09:39)
[2018-11-24] MEDS: ASCORBIC ACID 500 MG TAB GTB ×2 (09:39→21:37)
[2018-11-24] MEDS: BALSAM PERU/CASTOR OIL 60 GM TUBE TOP (09:40)
[2018-11-24] MEDS: AMIODARONE 200 MG TAB PO ×2 (09:40→21:37)
[2018-11-24] MEDS: METOPROLOL (XL) 25 MG TAB PO (09:41)
[2018-11-24] MEDS: traMADol 50 MG TAB PEG ×2 (09:50→21:37)
[2018-11-24] MEDS: FAMOTIDINE 20 MG TAB GTB (21:37)
[2018-11-25] MEDS: VANCOMYCIN HCL 250 MG/5ML POSYG GTB ×3 (05:10→18:07)
[2018-11-25] MEDS: LEVOTHYROXINE 50 MCG TAB GTB (05:10)
[2018-11-25] MEDS: ZINC SULFATE 220 MG CAP GTB (08:59)
[2018-11-25] MEDS: METOPROLOL (XL) 25 MG TAB PO (08:59)
[2018-11-25] MEDS: ASCORBIC ACID 500 MG TAB GTB ×2 (08:59→22:06)
[2018-11-25] MEDS: AMIODARONE 200 MG TAB PO ×2 (08:59→22:07)
[2018-11-25] MEDS: traMADol 50 MG TAB PEG ×2 (09:00→22:06)
[2018-11-25] MEDS: BALSAM PERU/CASTOR OIL 60 GM TUBE TOP (09:00)
[2018-11-25] MEDS: MULTIVITAMINS 30 ML CUP GTB (09:00)
[2018-11-25] MEDS: POTASSIUM CHLORIDE 20 MEQ POWDER FOR ORAL SOLN GTB (09:00)
[2018-11-25] MEDS: FAMOTIDINE 20 MG TAB GTB (22:06)
[2018-11-26] MEDS: VANCOMYCIN HCL 250 MG/5ML POSYG GTB ×4 (02:15→19:23)
[2018-11-26] MEDS: LEVOTHYROXINE 50 MCG TAB GTB (06:08)
[2018-11-26] MEDS: POTASSIUM CHLORIDE 20 MEQ POWDER FOR ORAL SOLN GTB (09:05)
[2018-11-26] MEDS: MULTIVITAMINS 30 ML CUP GTB (09:05)
[2018-11-26] MEDS: AMIODARONE 200 MG TAB PO ×2 (09:06→21:21)
[2018-11-26] MEDS: METOPROLOL (XL) 25 MG TAB PO (09:06)
[2018-11-26] MEDS: ZINC SULFATE 220 MG CAP GTB (09:06)
[2018-11-26] MEDS: ASCORBIC ACID 500 MG TAB GTB ×2 (09:07→21:19)
[2018-11-26] MEDS: BALSAM PERU/CASTOR OIL 60 GM TUBE TOP (09:07)
[2018-11-26] MEDS: traMADol 50 MG TAB PEG ×2 (09:07→21:19)
[2018-11-26] MEDS: metroNIDAZOLE 500 MG/NS (PMX) 100 ML IVPB ×2 (19:24→21:18)
[2018-11-26] MEDS: FAMOTIDINE 20 MG TAB GTB (21:21)
[2018-11-27] MEDS: VANCOMYCIN HCL 250 MG/5ML POSYG GTB ×3 (00:12→11:22)
[2018-11-27] MEDS: LEVOTHYROXINE 50 MCG TAB GTB (06:19)
[2018-11-27] MEDS: metroNIDAZOLE 500 MG/NS (PMX) 100 ML IVPB (06:19)
[2018-11-27] MEDS: ASCORBIC ACID 500 MG TAB GTB (08:13)
[2018-11-27] MEDS: BALSAM PERU/CASTOR OIL 60 GM TUBE TOP (08:13)
[2018-11-27] MEDS: MULTIVITAMINS 30 ML CUP GTB (08:13)
[2018-11-27] MEDS: POTASSIUM CHLORIDE 20 MEQ POWDER FOR ORAL SOLN GTB (08:13)
[2018-11-27] MEDS: ZINC SULFATE 220 MG CAP GTB (08:13)
[2018-11-27] MEDS: METOPROLOL (XL) 25 MG TAB PO (08:14)
[2018-11-27] MEDS: AMIODARONE 200 MG TAB PO (08:14)
[2018-11-27] MEDS: traMADol 50 MG TAB PEG (08:44)
== END 2018-11-27 16:22 | DRG 870 ==
LOC: ICU 11-16 18:23 → E/R 06:31 → 6WM 11-18 17:52 → TEL 12:38
PROVIDERS: Hospitalist
PROC: 5A1955Z Respiratory Ventilation, Greater than 96 Consecutive Hours (ICD-10-PCS; principal; 2018-11-14)
DX: A41.9 Sepsis, unspecified organism (principal); J96.10 Chronic respiratory failure, unspecified whether with hypoxia or hypercapnia; N39.0 Urinary tract infection, site not specified; I82.411 Acute embolism and thrombosis of right femoral vein; A04.72 Enterocolitis due to Clostridium difficile, not specified as recurrent; G93.49 Other encephalopathy; C71.9 Malignant neoplasm of brain, unspecified; E46 Unspecified protein-calorie malnutrition; I42.9 Cardiomyopathy, unspecified; E87.0 Hyperosmolality and hypernatremia; Z99.11 Dependence on respirator [ventilator] status; I48.0 Paroxysmal atrial fibrillation; R13.10 Dysphagia, unspecified; E03.9 Hypothyroidism, unspecified; B96.5 Pseudomonas (aeruginosa) (mallei) (pseudomallei) as the cause of diseases classified elsewhere; D64.9 Anemia, unspecified; Z93.0 Tracheostomy status; Z93.1 Gastrostomy status; Z68.22 Body mass index [BMI] 22.0-22.9, adult
CPT/HCPCS: 36415; 36600; 70450; 71045; 80048; 80053; 80170; 80202; 81001; 82803; 83036; 83605; 83735; 84100; 84443; 84484; 85025; 85610; 85730; 87040-91; 87075; 87081; 87086; 93005; 93306; 93970; 94002; 94003; 96365; 96366; 96367; 96375; 99285-25

== ENCOUNTER 2018-12-20 13:45 | Inpatient (IN) | payer OTHER, MEDICAID ==
[2018-12-20 14:32] LABS: ADD MAN DIFF? NO
[2018-12-20] MEDS: CEFEPIME 2GM/50 ML (PMX) 50 ML IVPB (14:32)
[2018-12-20] MEDS: SODIUM CHLORIDE 0.9% 1L BAG IV* (14:32)
[2018-12-20 14:34] LABS: WHITE BLOOD COUNT 13.8 10^3/ul (4.8-10.8)
[2018-12-20 14:34] LABS: ABNORMAL IP MESSAGE 1; BASOPHILS % 0.2 % (0.0-2.0); EOSINOPHILS # 0.1 10^3/ul (0.0-0.5); EOSINOPHILS % 0.5 % (0.0-7.0); HEMATOCRIT 25.8 % (42.0-52.0); HEMOGLOBIN 7.6 g/dl (14.0-18.0); LYMPHOCYTES # 2.9 10^3/ul (0.8-2.9); LYMPHOCYTES % 21.2 % (15.0-51.0); MEAN CORPUSCULAR HEMOGLOBIN 26.9 pg (29.0-33.0); MEAN CORPUSCULAR HGB CONC 29.5 g/dl (32.0-37.0); MEAN CORPUSCULAR VOLUME 91.2 fl (82.0-101.0); MEAN PLATELET VOLUME 10.7 fl (7.4-10.4); MONOCYTE # 0.6 10^3/ul (0.3-0.9); MONOCYTES % 4.6 % (0.0-11.0); NEUTROPHIL # 9.9 10^3/ul (1.6-7.5); NEUTROPHILS % 72.1 % (39.0-77.0); NUCLEATED RED BLOOD CELLS% 0.2 /100WBC (0.0-0.0); PLATELET COUNT 253 10^3/UL (140-415); POSITIVE DIFF @See below; RED BLOOD COUNT 2.83 10^6/ul (4.70-6.10); RED CELL DISTRIBUTION WIDTH 24.5 % (11.5-14.5)
[2018-12-20 14:51] LABS: ALANINE AMINOTRANSFERASE 18 IU/L (13-69); ALBUMIN 1.9 g/dl (3.3-4.9); ALBUMIN/GLOBULIN RATIO 0.47; ALKALINE PHOSPHATASE 167 IU/L (42-121); ANION GAP 8 (5-13); ASPARTATE AMINO TRANSFERASE 32 IU/L (15-46); BILIRUBIN,INDIRECT 0.3 mg/dl (0-1.1); BILIRUBIN,TOTAL 0.3 mg/dl (0.2-1.3); BLOOD UREA NITROGEN 13 mg/dl (7-20); CALCIUM 8.7 mg/dl (8.4-10.2); CARBON DIOXIDE 14 mmol/L (21-31); CHLORIDE 131 mmol/L (97-110); CREATININE 3.11 mg/dl (0.61-1.24); GLUCOSE 85 mg/dl (70-220); POTASSIUM 3.5 mmol/L (3.5-5.1); SODIUM 153 mmol/L (135-144); TOTAL PROTEIN 5.9 g/dl (6.1-8.1)
[2018-12-20 14:54] LABS: INR 1.52; PROTIME 18.4 Sec (11.9-14.9); PT RATIO 1.4
[2018-12-20 14:55] LABS: PARTIAL THROMBOPLASTIN TIME 56.6 Sec (23.0-35.0)
[2018-12-20 15:02] LABS: TROPONIN-I < 0.012 ng/ml (0.000-0.120)
[2018-12-20] MEDS: VANCOMYCIN 1 GM (PMX) 250 ML IVPB (15:41)
[2018-12-20 16:53] LABS: IMMEDIATE SPIN CROSSMATCH 1 2
[2018-12-20 17:16] LABS: LACTIC ACID 1.8 mmol/L (0.5-2.0)
[2018-12-20] MEDS: NORepinephrine 8MG/250 ML (PMX 250 ML IV ×2 (19:03→19:10)
[2018-12-20] MEDS ORDERED: PIPER-TAZO 2.25 GM (PMX) 50 ML IVPB (20:00)
[2018-12-20] MEDS ORDERED: ONDANSETRON 4 MG INJ IV (20:00)
[2018-12-20] MEDS ORDERED: VANCOMYCIN IV PER PHARMACY XX ×2 (20:00→22:30)
[2018-12-20] MEDS ORDERED: IPRATROPIUM (HFA) 12.9 GM INHALER INH (20:00)
[2018-12-20] MEDS ORDERED: ACETAMINOPHEN 650MG/20.3ML CUP GTB (20:00)
[2018-12-20] MEDS ORDERED: ALBUTEROL HFA 8 GM INHALER INH (20:00)
[2018-12-20 21:01] LABS: ADD MAN DIFF? NO
[2018-12-20 21:12] LABS: ABNORMAL IP MESSAGE 1; BASOPHIL # 0.1 10^3/ul (0.0-0.1); BASOPHILS % 0.4 % (0.0-2.0); EOSINOPHILS # 0.1 10^3/ul (0.0-0.5); EOSINOPHILS % 0.3 % (0.0-7.0); HEMATOCRIT 30.6 % (42.0-52.0); LYMPHOCYTES % 15.3 % (15.0-51.0); MEAN CORPUSCULAR HEMOGLOBIN 27.2 pg (29.0-33.0); MEAN CORPUSCULAR HGB CONC 29.4 g/dl (32.0-37.0); MEAN CORPUSCULAR VOLUME 92.4 fl (82.0-101.0); MEAN PLATELET VOLUME 10.1 fl (7.4-10.4); MONOCYTE # 0.7 10^3/ul (0.3-0.9); MONOCYTES % 3.6 % (0.0-11.0); NEUTROPHIL # 15.6 10^3/ul (1.6-7.5); NEUTROPHILS % 78.9 % (39.0-77.0); NUCLEATED RED BLOOD CELLS # 0.1 10^3/ul (0.0-0.0); NUCLEATED RED BLOOD CELLS% 0.4 /100WBC (0.0-0.0); PLATELET COUNT 285 10^3/UL (140-415); POSITIVE DIFF @See below; RED BLOOD COUNT 3.31 10^6/ul (4.70-6.10)
[2018-12-20 21:12] LABS: WHITE BLOOD COUNT 19.8 10^3/ul (4.8-10.8)
[2018-12-20 21:30] LABS: MAGNESIUM 1.9 mg/dl (1.7-2.5)
[2018-12-20 21:32] LABS: ALANINE AMINOTRANSFERASE 21 IU/L (13-69); ALBUMIN 1.7 g/dl (3.3-4.9); ALBUMIN/GLOBULIN RATIO 0.48; ALKALINE PHOSPHATASE 149 IU/L (42-121); ANION GAP 7 (5-13); ASPARTATE AMINO TRANSFERASE 28 IU/L (15-46); BILIRUBIN,INDIRECT 0.5 mg/dl (0-1.1); BILIRUBIN,TOTAL 0.5 mg/dl (0.2-1.3); BLOOD UREA NITROGEN 12 mg/dl (7-20); CARBON DIOXIDE 13 mmol/L (21-31); CHLORIDE 133 mmol/L (97-110); CREATININE 2.89 mg/dl (0.61-1.24); GLUCOSE 88 mg/dl (70-220); POTASSIUM 3.5 mmol/L (3.5-5.1); SODIUM 153 mmol/L (135-144); TOTAL PROTEIN 5.2 g/dl (6.1-8.1)
[2018-12-20] MEDS: FAMOTIDINE 20 MG INJ IV (21:40)
[2018-12-20] MEDS: SOD CHLORIDE 0.9% 1,000 ML IV (22:34)
[2018-12-20] MEDS: DEXTROSE 5% 1,000 ML IV (22:35)
[2018-12-20] MEDS: ALBUMIN HUMAN 25% 100 ML IV (22:36)
[2018-12-20] MEDS: MAGNESIUM SULFATE 1 GM/D5W 100 ML IVPB (23:26)
[2018-12-21] MEDS ORDERED: PIPER-TAZO 2.25 GM (PMX) 50 ML IVPB
[2018-12-21 00:30] LABS: AADO2 Arterial 70.3 mmHg (7.0-24.0); Allen Test ACCEPTAB; Arterial Base Excess -13.3 mmol/L (-3.0-3); Arterial Blood Gas Oxygen Sat 99.3 mmHG (95.0-100.0); Arterial COHb 0.9 % (0.0-3.0); Arterial Fraction of Oxyhgb 97.7 % (93.0-99.0); Arterial HCO3 12.3 mmol/L (22.0-26.0); Arterial MetHb 0.7 % (0.0-1.5); Blood Gas Low PEEP Setting 0 cmH2O; MODE VENT - AC; Site Right Radial
[2018-12-21] MEDS: ALBUMIN HUMAN 25% 100 ML IV (00:34)
[2018-12-21] MEDS: NA BICARBONATE 8.4% 50 ML SYG IV (01:01)
[2018-12-21] MEDS ORDERED: NA PHOSPHATE/BIPHOS 133 ML ENEMA PR (03:30)
[2018-12-21] MEDS ORDERED: AL HYDROX/MG HYDROX/SIMETH 30 ML CUP GTB (03:30)
[2018-12-21] MEDS ORDERED: ONDANSETRON 4 MG TAB GTB (03:30)
[2018-12-21] MEDS ORDERED: traMADol 50 MG TAB GTB (03:30)
[2018-12-21] MEDS ORDERED: ACETAMINOPHEN 650MG/20.3ML CUP GTB (03:30)
[2018-12-21 05:36] LABS: ADD MAN DIFF? NO
[2018-12-21 05:53] LABS: WHITE BLOOD COUNT 19.1 10^3/ul (4.8-10.8)
[2018-12-21 05:53] LABS: ABNORMAL IP MESSAGE 1; BASOPHIL # 0.1 10^3/ul (0.0-0.1); BASOPHILS % 0.5 % (0.0-2.0); EOSINOPHILS # 0.1 10^3/ul (0.0-0.5); EOSINOPHILS % 0.5 % (0.0-7.0); HEMATOCRIT 25.7 % (42.0-52.0); HEMOGLOBIN 7.7 g/dl (14.0-18.0); LYMPHOCYTES % 15.7 % (15.0-51.0); MEAN CORPUSCULAR HEMOGLOBIN 27.4 pg (29.0-33.0); MEAN CORPUSCULAR VOLUME 91.5 fl (82.0-101.0); MEAN PLATELET VOLUME 10.8 fl (7.4-10.4); MONOCYTE # 0.9 10^3/ul (0.3-0.9); MONOCYTES % 4.5 % (0.0-11.0); NEUTROPHIL # 14.8 10^3/ul (1.6-7.5); NEUTROPHILS % 77.5 % (39.0-77.0); NUCLEATED RED BLOOD CELLS # 0.1 10^3/ul (0.0-0.0); NUCLEATED RED BLOOD CELLS% 0.4 /100WBC (0.0-0.0); PLATELET COUNT 243 10^3/UL (140-415); POSITIVE DIFF @See below; RED BLOOD COUNT 2.81 10^6/ul (4.70-6.10); RED CELL DISTRIBUTION WIDTH 22.5 % (11.5-14.5)
[2018-12-21] MEDS: LEVOTHYROXINE 50 MCG TAB GTB (06:11)
[2018-12-21] MEDS: LANSOPRAZOLE 30 MG CAP GTB (06:12)
[2018-12-21] MEDS: NORepinephrine 8MG/250 ML (PMX 250 ML IV ×2 (06:18→16:21)
[2018-12-21 06:42] LABS: FREE T3 1.63 pg/ml (2.77-5.27)
[2018-12-21 06:43] LABS: C-REACTIVE PROTEIN 22.4 mg/dl (0.0-0.9)
[2018-12-21 06:45] LABS: FREE T4 (FREE THYROXINE) 0.67 ng/dl (0.85-1.93)
[2018-12-21 06:58] LABS: ALANINE AMINOTRANSFERASE 16 IU/L (13-69); ALBUMIN 2.2 g/dl (3.3-4.9); ALBUMIN/GLOBULIN RATIO 0.68; ALKALINE PHOSPHATASE 122 IU/L (42-121); ANION GAP 7 (5-13); ASPARTATE AMINO TRANSFERASE 26 IU/L (15-46); BILIRUBIN,INDIRECT 0.4 mg/dl (0-1.1); BILIRUBIN,TOTAL 0.4 mg/dl (0.2-1.3); BLOOD UREA NITROGEN 11 mg/dl (7-20); CARBON DIOXIDE 16 mmol/L (21-31); CHLORIDE 132 mmol/L (97-110); CREATININE 2.78 mg/dl (0.61-1.24); GLUCOSE 116 mg/dl (70-220); SODIUM 155 mmol/L (135-144); TOTAL PROTEIN 5.4 g/dl (6.1-8.1)
[2018-12-21 07:09] LABS: OSMOLALITY 314 mOsm/kg (280-295)
[2018-12-21 07:32] LABS: ERYTHROCYTE SEDIMENTATION RATE 2 mm/Hr (0-20)
[2018-12-21 07:41] LABS: AADO2 Arterial 131.4 mmHg (7.0-24.0); Allen Test ACCEPTAB; Arterial Base Excess -11.4 mmol/L (-3.0-3); Arterial Blood Gas Oxygen Sat 97.8 mmHG (95.0-100.0); Arterial COHb 0.3 % (0.0-3.0); Arterial HCO3 13.2 mmol/L (22.0-26.0); Arterial MetHb 0.5 % (0.0-1.5); Arterial pCO2 25.8 mmhg (35-45); MODE VENT - AC; Site Right Radial
[2018-12-21] MEDS ORDERED: NON-FORMULARY/PATIENT OWN MED (Lactobacillus Acidophilus/Pect (Acidophilus-Pectin Capsule) GTB (09:00)
[2018-12-21] MEDS ORDERED: NON-FORMULARY/PATIENT OWN MED (Amino Acids/Protein Hydrolys (Pro-Stat Awc Liquid) 30 ML) GTB (09:00)
[2018-12-21] MEDS ORDERED: NON-FORMULARY/PATIENT OWN MED (Omeprazole* 40 MG) GTB (09:00)
[2018-12-21] MEDS ORDERED: NON-FORMULARY/PATIENT OWN MED (Cran/Vitc/Mannose/Inulin/Brom (Uti-Stat Liquid) 3,875 MG) GTB (09:00)
[2018-12-21] MEDS ORDERED: [UNRECOGNIZED DRUG - OTHER] GTB (09:00)
[2018-12-21] MEDS ORDERED: NON-FORMULARY/PATIENT OWN MED (Cranberry Extract (Cranberry) 425 MG) GTB (09:00)
[2018-12-21] MEDS ORDERED: SODIUM CHLORIDE 0.45% 500 ML BAG IV* (09:00)
[2018-12-21] MEDS ORDERED: MULTIVITAMIN WITH MINERALS GTB (09:00)
[2018-12-21 09:07] LABS: ANION GAP 7 (5-13); BLOOD UREA NITROGEN 11 mg/dl (7-20); CALCIUM 7.7 mg/dl (8.4-10.2); CARBON DIOXIDE 16 mmol/L (21-31); CHLORIDE 131 mmol/L (97-110); CREATININE 2.78 mg/dl (0.61-1.24); GLUCOSE 121 mg/dl (70-220); SODIUM 154 mmol/L (135-144)
[2018-12-21 09:11] LABS: POTASSIUM 2.9 mmol/L (3.5-5.1)
[2018-12-21] MEDS: SOD CHLORIDE 0.45% 1,000 ML IV ×2 (09:40→19:56)
[2018-12-21] MEDS: DEXTROSE 5% IV (09:47)
[2018-12-21] MEDS: WATER IV (09:47)
[2018-12-21] MEDS: LACTOBACILLUS RHAMNOSUS CAP GTB ×2 (09:58→21:09)
[2018-12-21] MEDS: MULTIVITAMINS/MINERALS TAB GTB (09:58)
[2018-12-21] MEDS: ZINC SULFATE 220 MG CAP GTB (09:58)
[2018-12-21] MEDS: ARTIFICIAL TEARS 15 ML OPH BOTH EYES ×3 (09:58→21:06)
[2018-12-21] MEDS: ASCORBIC ACID 500 MG TAB GTB (09:59)
[2018-12-21] MEDS: MAGNESIUM HYDROXIDE 30ML CUP GTB (09:59)
[2018-12-21] MEDS: AMIODARONE 200 MG TAB GTB (09:59)
[2018-12-21] MEDS: POTASSIUM CHLORIDE 50 ML IVPB ×2 (12:07→14:07)
[2018-12-21 15:29] LABS: ANION GAP 9 (5-13); BLOOD UREA NITROGEN 11 mg/dl (7-20); CALCIUM 7.4 mg/dl (8.4-10.2); CARBON DIOXIDE 13 mmol/L (21-31); CHLORIDE 124 mmol/L (97-110); CREATININE 2.86 mg/dl (0.61-1.24); GLUCOSE 135 mg/dl (70-220); POTASSIUM 3.5 mmol/L (3.5-5.1); SODIUM 146 mmol/L (135-144)
[2018-12-21] MEDS: EPOETIN ALFA-EPBX (ESRD) 4,000 UNIT/ML VIAL SC (16:48)
[2018-12-21 17:48] LABS: SODIUM,URINE RANDOM 92 mmol/L (30-90)
[2018-12-21 17:49] LABS: ADD UMIC YES; ANION GAP 8 (5-13); BLOOD UREA NITROGEN 11 mg/dl (7-20); CALCIUM 7.5 mg/dl (8.4-10.2); CARBON DIOXIDE 13 mmol/L (21-31); CHLORIDE 124 mmol/L (97-110); CREATININE 2.87 mg/dl (0.61-1.24); GLUCOSE 116 mg/dl (70-220); POTASSIUM 3.7 mmol/L (3.5-5.1); SODIUM 145 mmol/L (135-144); UR ASCORBIC ACID NEGATIVE (NEGATIVE); UR BACTERIA FEW /HPF (NONE SEEN); UR BILIRUBIN (Dip) NEGATIVE (NEGATIVE); UR BLOOD (Dip) 2+ mg/dL (NEGATIVE); UR BUDDING YEAST MODERATE /HPF (NONE SEEN); UR CLARITY CLOUDY (CLEAR); UR COLOR AMBER (YELLOW); UR GLUCOSE (Dip) NEGATIVE (NEGATIVE); UR KETONES (Dip) TRACE mg/dL (NEGATIVE); UR LEUKOCYTE ESTERASE (Dip) 3+ Leu/ul (NEGATIVE); UR NITRITE (Dip) NEGATIVE (NEGATIVE); UR RBC 16 /HPF (0-5); UR SPECIFIC GRAVITY (Dip) 1.017 (1.003-1.030); UR TOTAL PROTEIN (Dip) 2+ mg/dl (NEGATIVE); UR UROBILINOGEN (Dip) NEGATIVE (NEGATIVE); UR WBC > 182 /HPF (0-5)
[2018-12-21 17:51] LABS: OSMOLALITY,URINE 331 mOsm/kg (250-1200)
[2018-12-21 18:11] LABS: CREATININE,URINE RANDOM 90.59 mg/dl (20-370)
[2018-12-21] MEDS: HEPARIN 5,000 UNIT/1 ML VIAL SC (21:10)
[2018-12-21 21:31] LABS: ANION GAP 8 (5-13); BLOOD UREA NITROGEN 11 mg/dl (7-20); CALCIUM 7.4 mg/dl (8.4-10.2); CARBON DIOXIDE 12 mmol/L (21-31); CHLORIDE 124 mmol/L (97-110); CREATININE 2.82 mg/dl (0.61-1.24); GLUCOSE 104 mg/dl (70-220); POTASSIUM 3.6 mmol/L (3.5-5.1); SODIUM 144 mmol/L (135-144)
[2018-12-21] MEDS: PIPER-TAZO 2.25 GM (PMX) 50 ML IVPB (22:48)
[2018-12-22] MEDS: NORepinephrine 8MG/250 ML (PMX 250 ML IV ×2 (01:21→18:47)
[2018-12-22 05:12] LABS: ADD MAN DIFF? NO
[2018-12-22 05:16] LABS: WHITE BLOOD COUNT 13.2 10^3/ul (4.8-10.8)
[2018-12-22 05:16] LABS: ABNORMAL IP MESSAGE 1; BASOPHILS % 0.2 % (0.0-2.0); EOSINOPHILS # 0.1 10^3/ul (0.0-0.5); EOSINOPHILS % 0.5 % (0.0-7.0); HEMATOCRIT 25.8 % (42.0-52.0); HEMOGLOBIN 7.8 g/dl (14.0-18.0); LYMPHOCYTES # 3.4 10^3/ul (0.8-2.9); LYMPHOCYTES % 25.6 % (15.0-51.0); MEAN CORPUSCULAR HEMOGLOBIN 27.5 pg (29.0-33.0); MEAN CORPUSCULAR HGB CONC 30.2 g/dl (32.0-37.0); MEAN CORPUSCULAR VOLUME 90.8 fl (82.0-101.0); MEAN PLATELET VOLUME 10.4 fl (7.4-10.4); MONOCYTE # 0.9 10^3/ul (0.3-0.9); MONOCYTES % 6.6 % (0.0-11.0); NEUTROPHIL # 8.7 10^3/ul (1.6-7.5); NEUTROPHILS % 65.9 % (39.0-77.0); NUCLEATED RED BLOOD CELLS # 0.1 10^3/ul (0.0-0.0); NUCLEATED RED BLOOD CELLS% 0.5 /100WBC (0.0-0.0); PLATELET COUNT 194 10^3/UL (140-415); POSITIVE DIFF @See below; RED BLOOD COUNT 2.84 10^6/ul (4.70-6.10); RED CELL DISTRIBUTION WIDTH 23.2 % (11.5-14.5)
[2018-12-22 05:43] LABS: ALANINE AMINOTRANSFERASE 19 IU/L (13-69); ALBUMIN 1.9 g/dl (3.3-4.9); ALBUMIN/GLOBULIN RATIO 0.61; ALKALINE PHOSPHATASE 137 IU/L (42-121); ANION GAP 8 (5-13); ASPARTATE AMINO TRANSFERASE 22 IU/L (15-46); BILIRUBIN,INDIRECT 0.3 mg/dl (0-1.1); BILIRUBIN,TOTAL 0.3 mg/dl (0.2-1.3); BLOOD UREA NITROGEN 11 mg/dl (7-20); CALCIUM 7.4 mg/dl (8.4-10.2); CARBON DIOXIDE 13 mmol/L (21-31); CHLORIDE 125 mmol/L (97-110); CREATININE 2.82 mg/dl (0.61-1.24); GLUCOSE 77 mg/dl (70-220); POTASSIUM 3.4 mmol/L (3.5-5.1); SODIUM 146 mmol/L (135-144)
[2018-12-22 05:48] LABS: VANCOMYCIN,TROUGH < 5.0 ug/ml (10.0-20.0)
[2018-12-22] MEDS: PIPER-TAZO 2.25 GM (PMX) 50 ML IVPB (05:50)
[2018-12-22] MEDS: LANSOPRAZOLE 30 MG CAP GTB (05:50)
[2018-12-22] MEDS: SOD CHLORIDE 0.45% 1,000 ML IV ×3 (05:57→20:39)
[2018-12-22] MEDS: VANCOMYCIN 500 MG (PMX) 100 ML IVPB (06:37)
[2018-12-22] MEDS: POTASSIUM CHLORIDE 100 ML IVPB ×2 (06:46→09:07)
[2018-12-22] MEDS: AMIODARONE 200 MG TAB GTB (09:00)
[2018-12-22] MEDS: MAGNESIUM HYDROXIDE 30ML CUP GTB (09:00)
[2018-12-22] MEDS: LEVOTHYROXINE 125 MCG TAB GTB (09:06)
[2018-12-22] MEDS: LACTOBACILLUS RHAMNOSUS CAP GTB ×2 (09:08→21:22)
[2018-12-22] MEDS: ASCORBIC ACID 500 MG TAB GTB (09:08)
[2018-12-22] MEDS: ZINC SULFATE 220 MG CAP GTB (09:08)
[2018-12-22] MEDS: ARTIFICIAL TEARS 15 ML OPH BOTH EYES ×3 (09:09→21:23)
[2018-12-22] MEDS: HEPARIN 5,000 UNIT/1 ML VIAL SC ×2 (09:12→21:26)
[2018-12-22] MEDS: FLUCONAZOLE 200 MG (PMX) 100 ML IVPB (09:38)
[2018-12-22] MEDS: MULTIVITAMINS 30 ML CUP GTB (10:59)
[2018-12-22] MEDS: CASPOFUNGIN 70 MG in SOD CHLORIDE 0.9% 250 ML IVPB (13:34)
[2018-12-22] MEDS ORDERED: PENDING SANTYL ORDER FOR WOUND CARE XX (16:00)
[2018-12-22 16:37] LABS: CREATININE, RANDOM URINE 94 mg/dL (20-320); MICROALBUMIN 50.7 mg/dL; MICROALBUMIN/CREATININE RATIO 539 (<30)
[2018-12-22] MEDS: MEROPENEM 500MG/50 ML (PMX) 50 ML IVPB (21:22)
[2018-12-22] MEDS: BALSAM PERU/CASTOR OIL 60 GM TUBE TOP (22:34)
[2018-12-22] MEDS: DAKINS 0.0125%(1/40) 473 ML SOLUTION TP (22:34)
[2018-12-23 05:13] LABS: ADD MAN DIFF? NO
[2018-12-23 05:18] LABS: WHITE BLOOD COUNT 12.3 10^3/ul (4.8-10.8)
[2018-12-23 05:18] LABS: ABNORMAL IP MESSAGE 1; BASOPHILS % 0.3 % (0.0-2.0); EOSINOPHILS # 0.1 10^3/ul (0.0-0.5); EOSINOPHILS % 0.7 % (0.0-7.0); HEMOGLOBIN 7.8 g/dl (14.0-18.0); LYMPHOCYTES # 2.7 10^3/ul (0.8-2.9); LYMPHOCYTES % 21.9 % (15.0-51.0); MEAN CORPUSCULAR HEMOGLOBIN 26.9 pg (29.0-33.0); MEAN CORPUSCULAR VOLUME 89.7 fl (82.0-101.0); MEAN PLATELET VOLUME 10.5 fl (7.4-10.4); MONOCYTE # 0.8 10^3/ul (0.3-0.9); MONOCYTES % 6.3 % (0.0-11.0); NEUTROPHIL # 8.5 10^3/ul (1.6-7.5); NEUTROPHILS % 69.6 % (39.0-77.0); NUCLEATED RED BLOOD CELLS # 0.1 10^3/ul (0.0-0.0); NUCLEATED RED BLOOD CELLS% 0.4 /100WBC (0.0-0.0); PLATELET COUNT 145 10^3/UL (140-415); POSITIVE DIFF @See below; RED CELL DISTRIBUTION WIDTH 23.9 % (11.5-14.5)
[2018-12-23] MEDS: LANSOPRAZOLE 30 MG CAP GTB (05:37)
[2018-12-23 05:45] LABS: ALBUMIN 1.7 g/dl (3.3-4.9); ANION GAP 8 (5-13); BLOOD UREA NITROGEN 10 mg/dl (7-20); CALCIUM 7.3 mg/dl (8.4-10.2); CARBON DIOXIDE 12 mmol/L (21-31); CHLORIDE 122 mmol/L (97-110); CREATININE 2.87 mg/dl (0.61-1.24); POTASSIUM 3.8 mmol/L (3.5-5.1); SODIUM 142 mmol/L (135-144)
[2018-12-23 05:52] LABS: AADO2 Arterial 59.8 mmHg (7.0-24.0); Allen Test ACCEPTAB; Arterial Base Excess -12.8 mmol/L (-3.0-3); Arterial Blood Gas Oxygen Sat 98.2 mmHG (95.0-100.0); Arterial COHb 0.3 % (0.0-3.0); Arterial Fraction of Oxyhgb 97.5 % (93.0-99.0); Arterial MetHb 0.4 % (0.0-1.5); Blood Gas Low PEEP Setting 0 cmH2O; MODE VENT - AC; Site Right Radial
[2018-12-23 06:00] LABS: GLUCOSE 49 mg/dl (70-220)
[2018-12-23] MEDS: DEXTROSE 50% 50 ML SYRINGE IV (06:17)
[2018-12-23] MEDS: VANCOMYCIN 500 MG (PMX) 100 ML IVPB (06:20)
[2018-12-23] MEDS: SOD CHLORIDE 0.45% 1,000 ML IV ×2 (06:29→18:57)
[2018-12-23] MEDS: LACTOBACILLUS RHAMNOSUS CAP GTB ×2 (08:23→20:58)
[2018-12-23] MEDS: ZINC SULFATE 220 MG CAP GTB (08:23)
[2018-12-23] MEDS: MULTIVITAMINS 30 ML CUP GTB (08:23)
[2018-12-23] MEDS: MEROPENEM 500MG/50 ML (PMX) 50 ML IVPB ×2 (08:23→20:58)
[2018-12-23] MEDS: MAGNESIUM HYDROXIDE 30ML CUP GTB (08:24)
[2018-12-23] MEDS: LEVOTHYROXINE 125 MCG TAB GTB (08:24)
[2018-12-23] MEDS: ASCORBIC ACID 500 MG TAB GTB (08:24)
[2018-12-23] MEDS: ARTIFICIAL TEARS 15 ML OPH BOTH EYES ×3 (08:24→20:58)
[2018-12-23] MEDS: DAKINS 0.0125%(1/40) 473 ML SOLUTION TP (08:24)
[2018-12-23] MEDS: AMIODARONE 200 MG TAB GTB (08:24)
[2018-12-23] MEDS: BALSAM PERU/CASTOR OIL 60 GM TUBE TOP (08:25)
[2018-12-23] MEDS: HEPARIN 5,000 UNIT/1 ML VIAL SC ×2 (08:51→21:00)
[2018-12-23] MEDS ORDERED: PENDING SANTYL ORDER FOR WOUND CARE XX (09:00)
[2018-12-23] MEDS: CASPOFUNGIN 50 MG in SOD CHLORIDE 0.9% 250 ML IVPB (12:36)
[2018-12-23] MEDS: COLLAGENASE 5 GM (UD JAR) TOP (12:36)
[2018-12-23] MEDS: ALBUMIN HUMAN 25% 100 ML IV ×2 (12:40→18:57)
[2018-12-23] MEDS: EPOETIN ALFA-EPBX (ESRD) 4,000 UNIT/ML VIAL SC (16:11)
[2018-12-23] MEDS: NORepinephrine 8MG/250 ML (PMX 250 ML IV (22:37)
[2018-12-24] MEDS ORDERED: DEXTROSE 50% 50 ML SYRINGE (00:20)
[2018-12-24] MEDS: INSULIN ASPART [NOVOLOG] 3 ML PEN SC ×6 (00:30→20:53)
[2018-12-24] MEDS: DEXTROSE 50% 50 ML SYRINGE IV (00:31)
[2018-12-24] MEDS: NA BICARBONATE 8.4% 50 ML SYG IV ×2 (01:14)
[2018-12-24] MEDS: ALBUMIN HUMAN 25% 100 ML IV (04:28)
[2018-12-24] MEDS: VANCOMYCIN 500 MG (PMX) 100 ML IVPB (05:10)
[2018-12-24] MEDS: LANSOPRAZOLE 30 MG CAP GTB (05:10)
[2018-12-24] MEDS: LEVOTHYROXINE 125 MCG TAB GTB (05:10)
[2018-12-24 05:35] LABS: ADD MAN DIFF? NO
[2018-12-24 05:43] LABS: ABNORMAL IP MESSAGE 1; BASOPHILS % 0.3 % (0.0-2.0); EOSINOPHILS # 0.1 10^3/ul (0.0-0.5); EOSINOPHILS % 1.3 % (0.0-7.0); HEMATOCRIT 24.3 % (42.0-52.0); HEMOGLOBIN 7.3 g/dl (14.0-18.0); LYMPHOCYTES # 2.3 10^3/ul (0.8-2.9); LYMPHOCYTES % 24.5 % (15.0-51.0); MEAN CORPUSCULAR HEMOGLOBIN 27.5 pg (29.0-33.0); MEAN CORPUSCULAR VOLUME 91.7 fl (82.0-101.0); MEAN PLATELET VOLUME 10.8 fl (7.4-10.4); MONOCYTE # 0.9 10^3/ul (0.3-0.9); MONOCYTES % 9.2 % (0.0-11.0); NEUTROPHIL # 5.9 10^3/ul (1.6-7.5); NEUTROPHILS % 63.4 % (39.0-77.0); NUCLEATED RED BLOOD CELLS% 0.3 /100WBC (0.0-0.0); PLATELET COUNT 113 10^3/UL (140-415); POSITIVE DIFF @See below; RED BLOOD COUNT 2.65 10^6/ul (4.70-6.10)
[2018-12-24 05:43] LABS: WHITE BLOOD COUNT 9.3 10^3/ul (4.8-10.8)
[2018-12-24] MEDS ORDERED: DEXTROSE IV (06:00)
[2018-12-24] MEDS ORDERED: SODIUM BICARBONATE IV (06:00)
[2018-12-24] MEDS ORDERED: NACL IV (06:00)
[2018-12-24 06:14] LABS: VANCOMYCIN,TROUGH 11.2 ug/ml (10.0-20.0)
[2018-12-24 06:19] LABS: ANION GAP 9 (5-13); BLOOD UREA NITROGEN 11 mg/dl (7-20); CALCIUM 7.4 mg/dl (8.4-10.2); CARBON DIOXIDE 13 mmol/L (21-31); CHLORIDE 122 mmol/L (97-110); CREATININE 2.74 mg/dl (0.61-1.24); GLUCOSE 74 mg/dl (70-220); POTASSIUM 3.2 mmol/L (3.5-5.1); SODIUM 144 mmol/L (135-144)
[2018-12-24] MEDS: COLLAGENASE 5 GM (UD JAR) TOP (08:09)
[2018-12-24] MEDS: DAKINS 0.0125%(1/40) 473 ML SOLUTION TP (08:09)
[2018-12-24] MEDS: MEROPENEM 500MG/50 ML (PMX) 50 ML IVPB ×2 (08:09→20:40)
[2018-12-24] MEDS: BALSAM PERU/CASTOR OIL 60 GM TUBE TOP (08:09)
[2018-12-24] MEDS: ARTIFICIAL TEARS 15 ML OPH BOTH EYES ×3 (08:09→20:49)
[2018-12-24] MEDS: ASCORBIC ACID 500 MG TAB GTB (08:10)
[2018-12-24] MEDS: MULTIVITAMINS 30 ML CUP GTB (08:10)
[2018-12-24] MEDS: POTASSIUM CHLORIDE 100 ML IVPB ×3 (08:10→13:36)
[2018-12-24] MEDS: MAGNESIUM HYDROXIDE 30ML CUP GTB (08:10)
[2018-12-24] MEDS: AMIODARONE 200 MG TAB GTB (08:10)
[2018-12-24] MEDS: ZINC SULFATE 220 MG CAP GTB (08:10)
[2018-12-24] MEDS: HEPARIN 5,000 UNIT/1 ML VIAL SC ×2 (08:23→20:45)
[2018-12-24] MEDS: SODIUM BICARBONATE IV ×2 (08:51→21:41)
[2018-12-24] MEDS: NACL IV ×2 (08:51→21:41)
[2018-12-24] MEDS: DEXTROSE IV ×2 (08:51→21:41)
[2018-12-24 08:59] LABS: MAGNESIUM 1.8 mg/dl (1.7-2.5)
[2018-12-24] MEDS: LACTOBACILLUS RHAMNOSUS CAP GTB ×2 (09:00→21:52)
[2018-12-24] MEDS: MAGNESIUM SULFATE 1 GM/D5W 100 ML IVPB (10:55)
[2018-12-24] MEDS: CASPOFUNGIN 50 MG in SOD CHLORIDE 0.9% 250 ML IVPB (12:25)
[2018-12-24] MEDS: IOHEXOL 300MG/ML 30 ML BTL (15:40)
[2018-12-25] MEDS: INSULIN ASPART [NOVOLOG] 3 ML PEN SC ×6 (01:00→20:37)
[2018-12-25] MEDS: NORepinephrine 8MG/250 ML (PMX 250 ML IV (01:48)
[2018-12-25 05:05] LABS: ADD MAN DIFF? NO
[2018-12-25 05:08] LABS: WHITE BLOOD COUNT 8.3 10^3/ul (4.8-10.8)
[2018-12-25 05:08] LABS: ABNORMAL IP MESSAGE 1; BASOPHIL # 0.1 10^3/ul (0.0-0.1); BASOPHILS % 0.6 % (0.0-2.0); EOSINOPHILS # 0.2 10^3/ul (0.0-0.5); EOSINOPHILS % 2.8 % (0.0-7.0); HEMATOCRIT 23.5 % (42.0-52.0); HEMOGLOBIN 7.3 g/dl (14.0-18.0); LYMPHOCYTES # 2.5 10^3/ul (0.8-2.9); LYMPHOCYTES % 30.4 % (15.0-51.0); MEAN CORPUSCULAR HEMOGLOBIN 28.1 pg (29.0-33.0); MEAN CORPUSCULAR HGB CONC 31.1 g/dl (32.0-37.0); MEAN CORPUSCULAR VOLUME 90.4 fl (82.0-101.0); MEAN PLATELET VOLUME 10.9 fl (7.4-10.4); MONOCYTE # 1.1 10^3/ul (0.3-0.9); MONOCYTES % 13.5 % (0.0-11.0); NEUTROPHIL # 4.3 10^3/ul (1.6-7.5); NEUTROPHILS % 51.7 % (39.0-77.0); NUCLEATED RED BLOOD CELLS% 0.2 /100WBC (0.0-0.0); PLATELET COUNT 100 10^3/UL (140-415); POSITIVE DIFF @See below; RED CELL DISTRIBUTION WIDTH 24.5 % (11.5-14.5)
[2018-12-25 05:45] LABS: PHOSPHORUS 2.5 mg/dl (2.5-4.9)
[2018-12-25 05:45] LABS: MAGNESIUM 1.9 mg/dl (1.7-2.5)
[2018-12-25 05:46] LABS: ALBUMIN 1.9 g/dl (3.3-4.9); ANION GAP 8 (5-13); BLOOD UREA NITROGEN 10 mg/dl (7-20); CALCIUM 7.4 mg/dl (8.4-10.2); CARBON DIOXIDE 15 mmol/L (21-31); CHLORIDE 125 mmol/L (97-110); CREATININE 2.49 mg/dl (0.61-1.24); GLUCOSE 90 mg/dl (70-220); PHOSPHORUS 2.5 mg/dl (2.5-4.9); SODIUM 148 mmol/L (135-144)
[2018-12-25] MEDS: LANSOPRAZOLE 30 MG CAP GTB (06:22)
[2018-12-25] MEDS: VANCOMYCIN 500 MG (PMX) 100 ML IVPB (06:22)
[2018-12-25] MEDS: LEVOTHYROXINE 125 MCG TAB GTB (06:22)
[2018-12-25] MEDS: METOLAZONE 5 MG TAB PO (07:55)
[2018-12-25] MEDS: MULTIVITAMINS 30 ML CUP GTB (08:38)
[2018-12-25] MEDS: MAGNESIUM HYDROXIDE 30ML CUP GTB (08:38)
[2018-12-25] MEDS: AMIODARONE 200 MG TAB GTB (08:38)
[2018-12-25] MEDS: MEROPENEM 500MG/50 ML (PMX) 50 ML IVPB ×2 (08:39→20:38)
[2018-12-25] MEDS: ASCORBIC ACID 500 MG TAB GTB (08:39)
[2018-12-25] MEDS: COLLAGENASE 5 GM (UD JAR) TOP (08:39)
[2018-12-25] MEDS: ZINC SULFATE 220 MG CAP GTB (08:39)
[2018-12-25] MEDS: LACTOBACILLUS RHAMNOSUS CAP GTB ×2 (08:39→20:38)
[2018-12-25] MEDS: HEPARIN 5,000 UNIT/1 ML VIAL SC (08:40)
[2018-12-25] MEDS: NACL IV ×2 (08:41→16:16)
[2018-12-25] MEDS: DEXTROSE IV ×2 (08:41→16:16)
[2018-12-25] MEDS: BALSAM PERU/CASTOR OIL 60 GM TUBE TOP (08:41)
[2018-12-25] MEDS: DAKINS 0.0125%(1/40) 473 ML SOLUTION TP (08:41)
[2018-12-25] MEDS: ARTIFICIAL TEARS 15 ML OPH BOTH EYES ×3 (08:41→20:38)
[2018-12-25] MEDS: SODIUM BICARBONATE IV ×2 (08:41→16:16)
[2018-12-25] MEDS: MIDODRINE 5 MG TAB NGT ×3 (09:30→17:34)
[2018-12-25 11:09] LABS: IRON 38 ug/dl (35-150)
[2018-12-25 11:19] LABS: % IRON SATURATION 37 % SAT (22-52); TOTAL IRON BINDING CAPACITY 102 ug/dl (241-421)
[2018-12-25] MEDS: CASPOFUNGIN 50 MG in SOD CHLORIDE 0.9% 250 ML IVPB (13:14)
[2018-12-25] MEDS: METOCLOPRAMIDE 10 MG INJ IV (17:34)
[2018-12-25] MEDS: EPOETIN ALFA-EPBX (ESRD) 4,000 UNIT/ML VIAL SC (17:35)
[2018-12-26] MEDS: INSULIN ASPART [NOVOLOG] 3 ML PEN SC ×6 (01:00→21:00)
[2018-12-26] MEDS: METOCLOPRAMIDE 10 MG INJ IV ×4 (01:26→17:07)
[2018-12-26 05:10] LABS: ADD MAN DIFF? NO
[2018-12-26 05:13] LABS: WHITE BLOOD COUNT 8.7 10^3/ul (4.8-10.8)
[2018-12-26 05:13] LABS: ABNORMAL IP MESSAGE 1; BASOPHILS % 0.5 % (0.0-2.0); EOSINOPHILS # 0.4 10^3/ul (0.0-0.5); EOSINOPHILS % 4.3 % (0.0-7.0); HEMATOCRIT 23.4 % (42.0-52.0); HEMOGLOBIN 7.3 g/dl (14.0-18.0); LYMPHOCYTES # 2.9 10^3/ul (0.8-2.9); LYMPHOCYTES % 33.2 % (15.0-51.0); MEAN CORPUSCULAR HEMOGLOBIN 27.7 pg (29.0-33.0); MEAN CORPUSCULAR HGB CONC 31.2 g/dl (32.0-37.0); MEAN CORPUSCULAR VOLUME 88.6 fl (82.0-101.0); MEAN PLATELET VOLUME 11.7 fl (7.4-10.4); MONOCYTE # 1.2 10^3/ul (0.3-0.9); MONOCYTES % 13.8 % (0.0-11.0); NEUTROPHIL # 4.1 10^3/ul (1.6-7.5); NEUTROPHILS % 47.2 % (39.0-77.0); NUCLEATED RED BLOOD CELLS% 0.3 /100WBC (0.0-0.0); PLATELET COUNT 75 10^3/UL (140-415); POSITIVE DIFF @See below; RED BLOOD COUNT 2.64 10^6/ul (4.70-6.10); RED CELL DISTRIBUTION WIDTH 24.5 % (11.5-14.5)
[2018-12-26] MEDS: LANSOPRAZOLE 30 MG CAP GTB (05:34)
[2018-12-26] MEDS: VANCOMYCIN 500 MG (PMX) 100 ML IVPB (06:09)
[2018-12-26] MEDS: LEVOTHYROXINE 125 MCG TAB GTB (06:09)
[2018-12-26 06:38] LABS: ANION GAP 5 (5-13); BLOOD UREA NITROGEN 10 mg/dl (7-20); CALCIUM 7.4 mg/dl (8.4-10.2); CARBON DIOXIDE 17 mmol/L (21-31); CHLORIDE 124 mmol/L (97-110); CREATININE 2.32 mg/dl (0.61-1.24); GLUCOSE 77 mg/dl (70-220); MAGNESIUM 1.8 mg/dl (1.7-2.5); PHOSPHORUS 2.6 mg/dl (2.5-4.9); POTASSIUM 3.7 mmol/L (3.5-5.1); SODIUM 146 mmol/L (135-144)
[2018-12-26] MEDS: MAGNESIUM HYDROXIDE 30ML CUP GTB (08:17)
[2018-12-26] MEDS: MULTIVITAMINS 30 ML CUP GTB (08:17)
[2018-12-26] MEDS: FUROSEMIDE 40 MG INJ IV (08:17)
[2018-12-26] MEDS: COLLAGENASE 5 GM (UD JAR) TOP (08:17)
[2018-12-26] MEDS: ARTIFICIAL TEARS 15 ML OPH BOTH EYES ×3 (08:18→20:10)
[2018-12-26] MEDS: ZINC SULFATE 220 MG CAP GTB (08:18)
[2018-12-26] MEDS: AMIODARONE 200 MG TAB GTB (08:18)
[2018-12-26] MEDS: MEROPENEM 500MG/50 ML (PMX) 50 ML IVPB ×2 (08:18→20:10)
[2018-12-26] MEDS: ASCORBIC ACID 500 MG TAB GTB (08:18)
[2018-12-26] MEDS: LACTOBACILLUS RHAMNOSUS CAP GTB ×2 (08:18→20:10)
[2018-12-26] MEDS: BALSAM PERU/CASTOR OIL 60 GM TUBE TOP (08:19)
[2018-12-26] MEDS: DAKINS 0.0125%(1/40) 473 ML SOLUTION TP (08:19)
[2018-12-26] MEDS: MIDODRINE 5 MG TAB NGT ×3 (08:28→17:07)
[2018-12-26 08:36] LABS: AADO2 Arterial 58.3 mmHg (7.0-24.0); Allen Test ACCEPTAB; Arterial Base Excess -8.2 mmol/L (-3.0-3); Arterial Blood Gas Oxygen Sat 98.6 mmHG (95.0-100.0); Arterial COHb 1.4 % (0.0-3.0); Arterial Fraction of Oxyhgb 96.9 % (93.0-99.0); Arterial HCO3 15.5 mmol/L (22.0-26.0); Arterial MetHb 0.3 % (0.0-1.5); Arterial pCO2 25.5 mmhg (35-45); Blood Gas Low PEEP Setting 0 cmH2O; MODE VENT - AC; Site Right Radial
[2018-12-26] MEDS: CASPOFUNGIN 50 MG in SOD CHLORIDE 0.9% 250 ML IVPB (12:27)
[2018-12-26] MEDS: LOPERAMIDE HCL 1 MG/5 ML LIQUID (10 ML UD CUP) GTB (14:21)
[2018-12-26] MEDS: DEXTROSE 50% 50 ML SYRINGE IV (14:29)
[2018-12-27] MEDS: METOCLOPRAMIDE 10 MG INJ IV ×4 (00:41→17:33)
[2018-12-27] MEDS: INSULIN ASPART [NOVOLOG] 3 ML PEN SC ×6 (00:45→21:00)
[2018-12-27] MEDS: LANSOPRAZOLE 30 MG CAP GTB (05:09)
[2018-12-27 05:14] LABS: ADD MAN DIFF? NO
[2018-12-27 05:18] LABS: ABNORMAL IP MESSAGE 1; BASOPHILS % 0.5 % (0.0-2.0); EOSINOPHILS # 0.6 10^3/ul (0.0-0.5); EOSINOPHILS % 6.5 % (0.0-7.0); HEMATOCRIT 23.8 % (42.0-52.0); HEMOGLOBIN 7.2 g/dl (14.0-18.0); LYMPHOCYTES # 3.6 10^3/ul (0.8-2.9); LYMPHOCYTES % 42.2 % (15.0-51.0); MEAN CORPUSCULAR HEMOGLOBIN 27.7 pg (29.0-33.0); MEAN CORPUSCULAR HGB CONC 30.3 g/dl (32.0-37.0); MEAN CORPUSCULAR VOLUME 91.5 fl (82.0-101.0); MEAN PLATELET VOLUME 11.3 fl (7.4-10.4); MONOCYTE # 1.1 10^3/ul (0.3-0.9); MONOCYTES % 12.5 % (0.0-11.0); NEUTROPHIL # 3.2 10^3/ul (1.6-7.5); NEUTROPHILS % 37.1 % (39.0-77.0); NUCLEATED RED BLOOD CELLS% 0.2 /100WBC (0.0-0.0); PLATELET COUNT 65 10^3/UL (140-415); POSITIVE DIFF @See below; RED CELL DISTRIBUTION WIDTH 25.2 % (11.5-14.5)
[2018-12-27 05:18] LABS: WHITE BLOOD COUNT 8.6 10^3/ul (4.8-10.8)
[2018-12-27 05:43] LABS: ANION GAP 5 (5-13); BLOOD UREA NITROGEN 10 mg/dl (7-20); CALCIUM 7.7 mg/dl (8.4-10.2); CARBON DIOXIDE 17 mmol/L (21-31); CHLORIDE 124 mmol/L (97-110); CREATININE 2.27 mg/dl (0.61-1.24); GLUCOSE 55 mg/dl (70-220); MAGNESIUM 1.8 mg/dl (1.7-2.5); PHOSPHORUS 2.9 mg/dl (2.5-4.9); POTASSIUM 3.6 mmol/L (3.5-5.1); SODIUM 146 mmol/L (135-144)
[2018-12-27] MEDS: LEVOTHYROXINE 125 MCG TAB GTB (06:00)
[2018-12-27] MEDS ORDERED: MAGNESIUM HYDROXIDE 30ML CUP GTB (07:00)
[2018-12-27] MEDS: MEROPENEM 500MG/50 ML (PMX) 50 ML IVPB ×2 (07:53→21:35)
[2018-12-27] MEDS: DEXTROSE 50% 50 ML SYRINGE IV ×2 (07:53→21:45)
[2018-12-27] MEDS: LACTOBACILLUS RHAMNOSUS CAP GTB ×2 (08:01→21:34)
[2018-12-27] MEDS: ASCORBIC ACID 500 MG TAB GTB (08:01)
[2018-12-27] MEDS: ZINC SULFATE 220 MG CAP GTB (08:02)
[2018-12-27] MEDS: MIDODRINE 5 MG TAB NGT ×3 (08:02→17:33)
[2018-12-27] MEDS: FUROSEMIDE 40 MG INJ IV (08:02)
[2018-12-27] MEDS: AMIODARONE 200 MG TAB GTB (08:02)
[2018-12-27] MEDS: MULTIVITAMINS 30 ML CUP GTB (08:03)
[2018-12-27] MEDS: ARTIFICIAL TEARS 15 ML OPH BOTH EYES ×3 (08:03→21:34)
[2018-12-27] MEDS: COLLAGENASE 5 GM (UD JAR) TOP (08:05)
[2018-12-27] MEDS: DAKINS 0.0125%(1/40) 473 ML SOLUTION TP (08:06)
[2018-12-27] MEDS: BALSAM PERU/CASTOR OIL 60 GM TUBE TOP (08:06)
[2018-12-27] MEDS: METOLAZONE 5 MG TAB PO (08:09)
[2018-12-27] MEDS: CASPOFUNGIN 50 MG in SOD CHLORIDE 0.9% 250 ML IVPB (14:10)
[2018-12-28] MEDS: INSULIN ASPART [NOVOLOG] 3 ML PEN SC ×5 (01:00→18:35)
[2018-12-28] MEDS: METOCLOPRAMIDE 10 MG INJ IV ×4 (03:35→18:46)
[2018-12-28] MEDS: LANSOPRAZOLE 30 MG CAP GTB (04:59)
[2018-12-28] MEDS: LEVOTHYROXINE 125 MCG TAB GTB (05:00)
[2018-12-28 05:20] LABS: AADO2 Arterial 44.2 mmHg (7.0-24.0); Arterial Base Excess -7.3 mmol/L (-3.0-3); Arterial Blood Gas Oxygen Sat 98.7 mmHG (95.0-100.0); Arterial COHb 0.4 % (0.0-3.0); Arterial Fraction of Oxyhgb 97.8 % (93.0-99.0); Arterial HCO3 16.6 mmol/L (22.0-26.0); Arterial MetHb 0.5 % (0.0-1.5); Arterial pCO2 28.2 mmhg (35-45); Blood Gas Low PEEP Setting 0 cmH2O; MODE VENT - AC; Site LB
[2018-12-28 06:38] LABS: ADD MAN DIFF? NO
[2018-12-28 06:58] LABS: ABNORMAL IP MESSAGE 1; BASOPHIL # 0.1 10^3/ul (0.0-0.1); BASOPHILS % 0.7 % (0.0-2.0); EOSINOPHILS # 0.6 10^3/ul (0.0-0.5); EOSINOPHILS % 5.7 % (0.0-7.0); HEMATOCRIT 27.3 % (42.0-52.0); HEMOGLOBIN 8.1 g/dl (14.0-18.0); LYMPHOCYTES # 5.7 10^3/ul (0.8-2.9); LYMPHOCYTES % 51.6 % (15.0-51.0); MEAN CORPUSCULAR HEMOGLOBIN 27.3 pg (29.0-33.0); MEAN CORPUSCULAR HGB CONC 29.7 g/dl (32.0-37.0); MEAN CORPUSCULAR VOLUME 91.9 fl (82.0-101.0); MEAN PLATELET VOLUME 11.6 fl (7.4-10.4); MONOCYTE # 1.4 10^3/ul (0.3-0.9); MONOCYTES % 12.6 % (0.0-11.0); NEUTROPHIL # 3.2 10^3/ul (1.6-7.5); NEUTROPHILS % 28.9 % (39.0-77.0); NUCLEATED RED BLOOD CELLS% 0.4 /100WBC (0.0-0.0); POSITIVE DIFF @See below; RED BLOOD COUNT 2.97 10^6/ul (4.70-6.10); RED CELL DISTRIBUTION WIDTH 26.1 % (11.5-14.5)
[2018-12-28 07:01] LABS: PLATELET COUNT 64 10^3/UL (140-415)
[2018-12-28 07:11] LABS: ANION GAP 6 (5-13); BLOOD UREA NITROGEN 9 mg/dl (7-20); CARBON DIOXIDE 17 mmol/L (21-31); CHLORIDE 126 mmol/L (97-110); CREATININE 2.14 mg/dl (0.61-1.24); GLUCOSE 84 mg/dl (70-220); MAGNESIUM 1.7 mg/dl (1.7-2.5); PHOSPHORUS 3.3 mg/dl (2.5-4.9); POTASSIUM 3.5 mmol/L (3.5-5.1); SODIUM 149 mmol/L (135-144)
[2018-12-28 07:18] LABS: LACTIC ACID 2.1 mmol/L (0.5-2.0)
[2018-12-28] MEDS: MULTIVITAMINS 30 ML CUP GTB (10:07)
[2018-12-28] MEDS: MEROPENEM 500MG/50 ML (PMX) 50 ML IVPB (10:08)
[2018-12-28] MEDS: LACTOBACILLUS RHAMNOSUS CAP GTB (10:08)
[2018-12-28] MEDS: MIDODRINE 5 MG TAB NGT ×3 (10:08→18:31)
[2018-12-28] MEDS: ZINC SULFATE 220 MG CAP GTB (10:09)
[2018-12-28] MEDS: METOLAZONE 5 MG TAB PO (10:09)
[2018-12-28] MEDS: ASCORBIC ACID 500 MG TAB GTB (10:09)
[2018-12-28] MEDS: AMIODARONE 200 MG TAB GTB (10:09)
[2018-12-28] MEDS: BALSAM PERU/CASTOR OIL 60 GM TUBE TOP (10:10)
[2018-12-28] MEDS: COLLAGENASE 5 GM (UD JAR) TOP (10:10)
[2018-12-28] MEDS: DAKINS 0.0125%(1/40) 473 ML SOLUTION TP (10:10)
[2018-12-28] MEDS: ARTIFICIAL TEARS 15 ML OPH BOTH EYES ×2 (10:10→12:56)
[2018-12-28] MEDS: FUROSEMIDE 40 MG INJ IV (10:12)
[2018-12-28] MEDS: DEXTROSE 5% 1,000 ML IV (10:35)
[2018-12-28] MEDS: SOD CHLORIDE 0.9% 500 ML IV (12:55)
[2018-12-28] MEDS: MAGNESIUM SULFATE 1 GM/D5W 100 ML IVPB (12:55)
[2018-12-28] MEDS: CASPOFUNGIN 50 MG in SOD CHLORIDE 0.9% 250 ML IVPB (12:56)
[2018-12-28] MEDS: LOPERAMIDE HCL 1 MG/5 ML LIQUID (10 ML UD CUP) GTB (13:13)
[2018-12-28 13:39] LABS: LACTIC ACID 1.6 mmol/L (0.5-2.0)
[2018-12-28] MEDS: EPOETIN ALFA-EPBX (ESRD) 4,000 UNIT/ML VIAL SC (18:29)
[2018-12-29] MEDS ORDERED: MAGNESIUM OXIDE 400 MG TAB NGT (09:00)
== END 2018-12-28 19:25 | DRG 870 ==
LOC: 6WM 12-27 10:38 → E/R 13:45 → ICU 18:54
PROC: 02HV33Z Insertion of Infusion Device into Superior Vena Cava, Percutaneous Approach (ICD-10-PCS; principal; 2018-12-20)
PROC: 5A1955Z Respiratory Ventilation, Greater than 96 Consecutive Hours (ICD-10-PCS; 2018-12-20)
PROC: 30233N1 Transfusion of Nonautologous Red Blood Cells into Peripheral Vein, Percutaneous Approach (ICD-10-PCS; 2018-12-20)
DX: A41.9 Sepsis, unspecified organism (principal); J18.9 Pneumonia, unspecified organism; L89.154 Pressure ulcer of sacral region, stage 4; R65.21 Severe sepsis with septic shock; G92 Toxic encephalopathy; N17.0 Acute kidney failure with tubular necrosis; E43 Unspecified severe protein-calorie malnutrition; Z99.11 Dependence on respirator [ventilator] status; J96.10 Chronic respiratory failure, unspecified whether with hypoxia or hypercapnia; E87.0 Hyperosmolality and hypernatremia; E87.2 Acidosis; E87.3 Alkalosis; I69.954 Hemiplegia and hemiparesis following unspecified cerebrovascular disease affecting left non-dominant side; G93.49 Other encephalopathy; I42.8 Other cardiomyopathies; C71.9 Malignant neoplasm of brain, unspecified; B37.49 Other urogenital candidiasis; E87.4 Mixed disorder of acid-base balance; I48.0 Paroxysmal atrial fibrillation; I10 Essential (primary) hypertension; D50.9 Iron deficiency anemia, unspecified; E03.9 Hypothyroidism, unspecified; E87.6 Hypokalemia; E78.5 Hyperlipidemia, unspecified; I69.991 Dysphagia following unspecified cerebrovascular disease; R13.19 Other dysphagia; N28.9 Disorder of kidney and ureter, unspecified; R19.7 Diarrhea, unspecified; E87.70 Fluid overload, unspecified; D69.6 Thrombocytopenia, unspecified; Z93.0 Tracheostomy status; Z86.718 Personal history of other venous thrombosis and embolism; Z93.1 Gastrostomy status; Z66 Do not resuscitate
CPT/HCPCS: 36415; 36430; 36600; 49465; 70450; 71045; 74018; 76775; 80048; 80053; 80069; 80202; 81001; 81003; 82043; 82803; 82962; 83540; 83605; 83735; 83930; 83935; 84100; 84155; 84300; 84439; 84443; 84481; 84484; 85025; 85610; 85651; 85730; 86140; 86850; 86900; 86901; 86920; 87040-91; 87070; 87081; 87086; 89220; 93005; 94002; 94003; 94770; 95819; 96374; 96375; 99285-25